=== PATIENT | female | born 1960 | race Caucasian/White ===

== ENCOUNTER 2016-07-26 13:47 | Emergency (ER) | payer OTHER ==
[2016-07-26 13:57] VITALS: TEMP 98.2
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
[2016-07-26 15:30] VITALS: RESP 15
[2016-07-26 15:35] LABS: Basophils % (A) 0 %; CH 33.5; CHCM 34.5; Eosinophils # (A) 0.1 k/uL (0-0.7); Eosinophils % (A) 1 %; HCT 44.3 % (34.0-46.0); HDW 2.08; HGB 14.7 gm/dL (11.4-16.0); Luc # (Auto) 0.16; Luc % (Auto) 1; Lymphocytes % (A) 7 %; MCH 32.4 pg (25.0-35.0); MCHC 33.2 g/dL (31.0-37.0); MCV 97.6 fL (80.0-100.0); Monocytes # (A) 0.9 k/uL (0-1.0); Monocytes % (A) 6 %; Neutrophils # (A) 13.3 k/uL (1.3-7.7); Neutrophils % (A) 86 %; RBC 4.54 m/uL (3.80-5.40); RDW 12.2 % (11.5-15.5); WBC 15.5 k/uL (3.8-10.6); WBC (Perox) 15.23
[2016-07-26 15:42] LABS: ALT 34 U/L (9-52); AST 22 U/L (14-36); Alkaline Phosphatase 82 U/L (38-126); Anion Gap 10 mmol/L; Blood Urea Nitrogen 7 mg/dL (7-17); Calcium 9.7 mg/dL (8.4-10.2); Carbon Dioxide 23 mmol/L (22-30); Chloride 103 mmol/L (98-107); Glucose 85 mg/dL (74-99); Magnesium 1.6 mg/dL (1.6-2.3); Non-African American GFR(MDRD) >60 (>60 ml/min/1.73 sqM); Potassium 4.2 mmol/L (3.5-5.1); Sodium 136 mmol/L (137-145); Total Bilirubin 0.7 mg/dL (0.2-1.3)
--- NOTE | 2016-07-26 15:46 | XR ---
EXAMINATION TYPE: XR chest 2V DATE OF EXAM: 07/26/2016 3:39 PM COMPARISON: Chest x-ray November 30, 2013. CT thoracic spine July 21, 2013 HISTORY: History of COPD, asthma, and tobacco use presents with left lateral chest pain. TECHNIQUE: Frontal and lateral views of the chest are obtained. FINDINGS: Underlying emphysematous change is redemonstrated. There is no focal air space opacity, pleural effus ion, or pneumothorax seen. The cardiac silhouette size is within normal limits. The osseous struct ures are demineralized. Chronic sclerotic moderate compression fracture T9 level is redemonstrated. N o significant change from prior CT noted. IMPRESSION: Chronic emphysematous change without acute pulmonary process.
[2016-07-26 15:53] LABS: Creatine Kinase 90 U/L (30-135)
[2016-07-26 15:56] LABS: Prothrombin Time 10.5 sec (9.0-12.0)
[2016-07-26 16:07] LABS: Troponin I <0.012 ng/mL (0.000-0.034)
[2016-07-26 17:25] VITALS: BP 168/96; PULSE 80
== END 2016-07-26 17:26 | disposition home or self-care (01) ==
LOC: EC 13:47
DX: F41.9 Anxiety disorder, unspecified (principal); J44.9 Chronic obstructive pulmonary disease, unspecified; I10 Essential (primary) hypertension; Z95.5 Presence of coronary angioplasty implant and graft; Z79.899 Other long term (current) drug therapy; Z79.51 Long term (current) use of inhaled steroids
CPT/HCPCS: 36415; 71020; 80053; 82550; 82553; 83690; 83735; 84484; 85025; 85610; 85730; 93005; 99285

== ENCOUNTER 2016-07-28 14:45 | Observation (INO) | payer OTHER ==
[2016-07-28] MEDS ORDERED: SODIUM CHLORIDE 0.9% 1,000 ML IV STA (15:45)
[2016-07-28] MEDS ORDERED: LORazepam 2 MG/ML SYRINGE IV STA (15:45)
[2016-07-28 16:24] LABS: Basophils % (A) 1 %; CH 33.9; CHCM 34.4; Eosinophils # (A) 0.1 k/uL (0-0.7); Eosinophils % (A) 1 %; HDW 2.04; HGB 15.6 gm/dL (11.4-16.0); Luc # (Auto) 0.13; Luc % (Auto) 2; Lymphocytes # (A) 1.1 k/uL (1.0-4.8); Lymphocytes % (A) 16 %; MCH 32.8 pg (25.0-35.0); MCHC 33.1 g/dL (31.0-37.0); Mean Platelet Volume 8.1; Monocytes # (A) 0.4 k/uL (0-1.0); Monocytes % (A) 6 %; Neutrophils # (A) 5.3 k/uL (1.3-7.7); Neutrophils % (A) 75 %; RBC 4.75 m/uL (3.80-5.40); RDW 12.1 % (11.5-15.5)
[2016-07-28 16:32] LABS: Partial Thromboplastin Time 24.3 sec (22.0-30.0); Prothrombin Time 10.3 sec (9.0-12.0)
[2016-07-28 16:38] LABS: ALT 30 U/L (9-52); AST 20 U/L (14-36); Alkaline Phosphatase 86 U/L (38-126); Anion Gap 11 mmol/L; Blood Urea Nitrogen 8 mg/dL (7-17); Calcium 10.1 mg/dL (8.4-10.2); Carbon Dioxide 25 mmol/L (22-30); Chloride 99 mmol/L (98-107); Glucose 100 mg/dL (74-99); Magnesium 1.7 mg/dL (1.6-2.3); Non-African American GFR(MDRD) >60 (>60 ml/min/1.73 sqM); Sodium 135 mmol/L (137-145); Total Bilirubin 0.7 mg/dL (0.2-1.3); Total Protein 7.9 g/dL (6.3-8.2)
[2016-07-28] MEDS ORDERED: ENALAPRILAT 1.25 MG/ML 1 ML VIAL IVP STA (16:46)
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
[2016-07-28 16:54] LABS: Creatine Kinase 107 U/L (30-135)
[2016-07-28 17:07] LABS: Troponin I <0.012 ng/mL (0.000-0.034)
[2016-07-28] MEDS ORDERED: ASPIRIN 81 MG CHEW PO STA (17:27)
[2016-07-28] MEDS ORDERED: SODIUM CHLORIDE 0.9% 1,000 ML IV ONE (17:27)
[2016-07-28] MEDS ORDERED: NITROGLYCERIN SL TABS 0.4 MG TAB SUBLINGUAL PRN (17:27)
--- NOTE | 2016-07-28 18:24 | XR ---
EXAMINATION TYPE: XR chest 2V DATE OF EXAM: 07/28/2016 6:06 PM COMPARISON: 07/26/2016 HISTORY: Chest pain TECHNIQUE: Frontal and lateral views of the chest are obtained. FINDINGS: There is no heart failure nor confluent pneumonic infiltrate. There is mild flattening of the diaphragm. There are no hilar masses. Heart size is normal. There are chest leads. There is 50% a nterior wedging of T9 vertebra. IMPRESSION: COPD. No active cardiopulmonary disease. No change.
[2016-07-28] MEDS ORDERED: ALBUTEROL NEBULIZED 2.5 MG/3 ML INHALATION PRN (20:01)
[2016-07-28] MEDS ORDERED: LORATADINE 10 MG TAB PO PRN (20:01)
[2016-07-28] MEDS ORDERED: METOPROLOL SUCCINATE (ER) 50 MG TAB.ER.24H PO SCH (21:00)
[2016-07-28] MEDS ORDERED: LOSARTAN 50 MG TAB PO SCH (21:00)
[2016-07-28 21:16] VITALS: BMI 19.5
[2016-07-28 23:20] LABS: Creatine Kinase 84 U/L (30-135)
[2016-07-28 23:32] LABS: Creatine Kinase MB 0.9 ng/mL (0.0-2.4); Troponin I <0.012 ng/mL (0.000-0.034)
[2016-07-29 04:39] LABS: Cholesterol 171 mg/dL (<200); HDL Cholesterol 69 mg/dL (40-60); Triglycerides 63 mg/dL (<150)
[2016-07-29 04:53] LABS: Creatine Kinase 80 U/L (30-135)
[2016-07-29 05:06] LABS: Troponin I <0.012 ng/mL (0.000-0.034)
[2016-07-29] MEDS ORDERED: ASPIRIN 325 MG TAB PO SCH (09:00)
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
[2016-07-29] MEDS: LOSARTAN 50 MG TAB PO SCH (09:39)
[2016-07-29] MEDS: METOPROLOL SUCCINATE (ER) 50 MG TAB.ER.24H PO SCH (09:40)
[2016-07-29] MEDS: SYMBICORT 160-4.5 MCG INHALER INHALATION SCH ×3 (11:07→20:07)
[2016-07-29] MEDS: CHOLECALCIFEROL 1,000 UNIT TAB PO SCH (11:26)
--- NOTE | 2016-07-29 14:35 | ECHOF ---
Referral Reason: MEASUREMENTS -------- HEIGHT: 170.2 cm WEIGHT: 56.3 kg BP: RVIDd: 2.4 cm (< 3.3) IVSd: 0.9 cm (0.6 - 1.1) LVIDd: 3.4 cm (3.9 - 5.3) LVPWd: 0.9 cm (0.6 - 1.1) IVSs: 1.1 cm LVIDs: 2.8 cm LVPWs: 0.9 cm Ao Diam: 2.9 cm (2.0 - 3.7) AV Cusp: 1.8 cm (1.5 - 2.6) LA Diam: 1.7 cm (2.7 - 3.8) MV EXCURSION: 13.015 mm (> 18.000) MV EF SLOPE: 97 mm/s (70 - 150) EPSS: 0.4 cm MV E Benny: 0.75 m/s MV DecT: 165 ms MV A Benny: 0.50 m/s MV E/A Ratio: 1.51 RAP: 5.00 mmHg RVSP: 28.56 mmHg FINDINGS -------- Sinus rhythm. This was a technically adequate study. LV size, wall thickness and systolic function are normal, with an EF greater than 55%. The right ventricle is normal in size. The left atrial size is normal. The right atrial size is normal. There is mild aortic valve sclerosis. There is no evidence of aortic regurgitation. Mild mitral annular calcification present. Mild mitral regurgitation is present. Mild tricuspid regurgitation present. There is no evidence of pulmonary hypertension. There is no pulmonic regurgitation present. The aortic root size is normal. There is no pericardial effusion. CONCLUSIONS -------- 1. LV size, wall thickness and systolic function are normal, with an EF greater than 55%. 2. There is mild aortic valve sclerosis. 3. Mild mitral annular calcification present. 4. Mild mitral regurgitation is present. 5. Mild tricuspid regurgitation present. 6. There is no evidence of pulmonary hypertension. [employer]SEMBLER: Kim Moore RDCS
[2016-07-29] MEDS ORDERED: NICOTINE 14MG/24HR PATCH TRANSDERM SCH (14:45)
[2016-07-29] MEDS ORDERED: NICOTINE POLACRILEX 2 MG GUM BUCCAL PRN (15:04)
[2016-07-29] MEDS: IPRATROPIUM-ALBUTEROL 3 ML NEB INHALATION SCH ×2 (15:26→20:04)
[2016-07-29] MEDS: LORazepam 0.5 MG TAB PO SCH ×2 (15:27→22:30)
--- NOTE | 2016-07-29 16:18 | HP ---
DATE OF ADMISSION: 07/28/2016 PRESENTING COMPLAINT: Heart racing. HISTORY OF PRESENTING COMPLAINT: This is a 56-year-old patient of Dr. Dickerson who has a history of COPD, is a smoker, GERD, osteoarthritis, hypertension, takotsubo syndrome, presents with sweating, not feeling well, easily gets short of breath, chest tightness. Blood pressure has been running high. Patient's stepdaughter ( ) at home. Patient is concerned if she has been poisoned in a tea. The patient does smoke anywhere from a pack to 2 packs a day. Patient is here with a close friend of hers. Blood pressure has been running high. REVIEW OF SYSTEMS: CONSTITUTIONAL: Tired. HEENT: None. RESPIRATORY: Short of breath, wheezing. CARDIOVASCULAR: Some palpitations. GASTROINTESTINAL: Heartburn. GENITOURINARY: None. MUSCULOSKELETAL: Osteoarthritis in patient's joints. DERMATOLOGICAL: None. HEMATOLOGIC: None. LYMPHATICS: None. PSYCHIATRY: Very anxious. NEUROLOGICAL: None. Past medical history of COPD, GERD, osteoarthritis, ( ), asthma and hypertension, takotsubo syndrome, anxiety, depression. 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 SOCIAL HISTORY: Smokes about 2 packs a day. Lives with her . Denies alcohol. Does marijuana. FAMILY HISTORY: Reviewed and noncontributory to presentation. HOME MEDICATIONS: 1. Toprol-XL 50 mg q.h.s. 2. Cozaar 50 mg q.h.s. 3. Vitamin D3 6000 units p.o. daily. 4. Zyrtec 10 mg p.o. daily p.r.n. 5. Symbicort Once a day 4.5, 2 puffs b.i.d. 6. Ventolin HFA 1 to 2 puffs every 6 hours p.r.n. On examination, temperature 98.7, pulse 91, respirations 17, blood pressure 187/100, pulse ox 100% on room air. GENERAL APPEARANCE: Thin build, sitting up, rather anxious-appearing. EYES: Pupils equal. Conjunctivae normal. HEENT: Oral cavity normal. NECK: JVD not raised. Mass not palpable. RESPIRATORY: Effort increased. LUNGS: Diminished breath sounds. Prolonged expiration. CARDIOVASCULAR: First and second sounds normal. No edema. ABDOMEN: Soft, nontender. Liver and spleen not palpable. LYMPHATIC: No lymph node palpable in neck or axillae. PSYCHIATRY: Alert and oriented x3. Mood and affect very anxious-appearing. NEUROLOGICAL: Pupils equal. Cranial nerves grossly intact. Power and sensation grossly intact. INVESTIGATIONS: White count 7, hemoglobin was 15.6. Potassium 4.0. Chest x-ray shows hyperinflation. Two-D echocardiogram shows EF of 55%. ASSESSMENT: 1. Essential hypertension, uncontrolled, present on admission. 2. Acute chronic obstructive pulmonary disease exacerbation in a smoker. 3. Chronic nicotine dependence. 4. Anxiety disorder, not otherwise specified. 5. Social stressors. 6. Primary osteoarthritis of multiple joints. PLAN: Patient put on nebulized bronchodilators and a burst of steroids, will be given nicotine patch and nicotine lozenge. Will get some Ativan. Blood pressure medications are being adjusted. Care was discussed at the bedside. Bedside questions were answered. Patient will need at least 24 hours patient stay.
[2016-07-29] MEDS: methylPREDNISolone SOD SUCCI 40 MG/ML 1 ML VIAL IV SCH (19:50)
[2016-07-29] MEDS: NICOTINE 21MG/24HR PATCH TRANSDERM SCH (19:50)
[2016-07-29] MEDS ORDERED: METOPROLOL SUCCINATE (ER) 50 MG TAB.ER.24H PO SCH (21:00)
[2016-07-30] MEDS: methylPREDNISolone SOD SUCCI 40 MG/ML 1 ML VIAL IV SCH ×2 (01:29→08:17)
[2016-07-30] MEDS: IPRATROPIUM-ALBUTEROL 3 ML NEB INHALATION SCH ×2 (07:50→12:10)
[2016-07-30] MEDS: SYMBICORT 160-4.5 MCG INHALER INHALATION SCH (07:53)
[2016-07-30 08:02] VITALS: BP 142/91; RESP 16; TEMP 98.4
[2016-07-30] MEDS: LORazepam 0.5 MG TAB PO SCH (08:16)
[2016-07-30] MEDS: NICOTINE 21MG/24HR PATCH TRANSDERM SCH (08:16)
[2016-07-30] MEDS: METOPROLOL SUCCINATE (ER) 50 MG TAB.ER.24H PO SCH (08:17)
[2016-07-30] MEDS: LOSARTAN 50 MG TAB PO SCH (08:17)
[2016-07-30] MEDS: CHOLECALCIFEROL 1,000 UNIT TAB PO SCH (12:01)
[2016-07-30 12:22] VITALS: PULSE 82
--- NOTE | 2016-07-31 22:45 | DS ---
DATE OF ADMISSION: 07/29/2016 DATE OF DISCHARGE: 07/30/2016 FINAL DIAGNOSES: 1. Acute chronic obstructive pulmonary disease exacerbation in a smoker. 2. Chronic nicotine dependence. Patient is a cigarette smoker. 3. Essential hypertension, uncontrolled on presentation. 4. Anxiety disorder not otherwise specified. 5. Social stress. 6. Primary osteoarthritis in multiple joints. HOSPITAL COURSE: This patient presented with anxiety, somewhat uncontrolled, high blood pressure, COPD exacerbation. Two-D echocardiogram was unremarkable. Patient was given a burst of steroids, to which she responded. Patient's LDL is 89. Patient does take marijuana. Patient's was counseled extensively against ( ) smoking today. On examination, lungs have improved air entry. PSYCH: Patient's anxiety is actually improving. DISCHARGE MEDICATIONS: 1. Toprol XL 50 mg at bedtime. 2. Symbicort 160/4.5 two puffs b.i.d. 3. Vitamin D3 6000 units daily. 4. Cozaar 50 mg at bedtime. 5. Ventolin HFA 1 to 2 puffs q.6 p.r.n. 6. Atrovent HFA 2 puffs q.i.d. 7. Ativan 0.5 p.o. t.i.d. p.r.n. 8. Nicotine 20 mg patch. 9. Nicorette 2 mg chewing gum q.4 p.r.n. 10. Prednisone taper. Follow up with Dr. Artis Randle in 2 weeks. Follow up with Dr. Dickerson in 3 days. Discharge planning more than 35 minutes.
== END 2016-07-30 16:42 | disposition home or self-care (01) ==
LOC: EC 14:45 → 3OBS 17:27 → OBSVTOIN 07-29 14:34 → INTOOBSV 07-29 14:34 → 4MS4W 07-29 16:15
PROVIDERS: ADMIT Hospitalist; ATTEND Hospitalist
DX: J44.1 Chronic obstructive pulmonary disease with (acute) exacerbation (principal); I10 Essential (primary) hypertension; F17.210 Nicotine dependence, cigarettes, uncomplicated; G40.909 Epilepsy, unspecified, not intractable, without status epilepticus; G89.4 Chronic pain syndrome; I16.0 Hypertensive urgency; J45.909 Unspecified asthma, uncomplicated; K21.9 Gastro-esophageal reflux disease without esophagitis; M19.91 Primary osteoarthritis, unspecified site; Z79.899 Other long term (current) drug therapy; Z82.49 Family history of ischemic heart disease and other diseases of the circulatory system; Z79.51 Long term (current) use of inhaled steroids
CPT/HCPCS: 99285; 96374; 96361; 36415; 94640 ×4; 94760; 93005; 93306; 80061; 80053; 82550 ×2; 82553 ×2; 83735; 84484 ×2; 85025; 85610; 85730; 80306; 71020; G0378 ×4; S4990 ×2; J2060; J2920 ×2

== ENCOUNTER → 2017-01-22 | Outpatient (CLI) | payer OTHER | END | disposition home or self-care (01) | LOC: RADMAMWWP 07:39 | PROVIDERS: ATTEND Family Medicine | DX: Z53.9 Procedure and treatment not carried out, unspecified reason (principal) ==

== ENCOUNTER → 2017-08-23 | Outpatient (CLI) | payer OTHER ==
--- NOTE | 2017-08-27 11:13 | MM ---
Reason for exam: screening (asymptomatic). Last mammogram was performed 1 year and 10 months ago. History: Patient is postmenopausal. Benign excisional biopsy of the right breast, 2008. Physical Findings: A clinical breast exam by your physician is recommended on an annual basis and results should be correlated with mammographic findings. MG 3D Screening Mammo W/Cad Bilateral CC and MLO view(s) were taken. Prior study comparison: October 20, 2015, bilateral MG diagnostic mammo w CAD [facility]. January 29, 2015, bilateral MG screening mammo w CAD. The breast tissue is heterogeneously dense. This may lower the sensitivity of mammography. No suspicious abnormality. Right post excisional biopsy change. No significant changes when compared with prior studies. ASSESSMENT: Incomplete: need additional imaging evaluation, BI-RAD 0 RECOMMENDATION: Special view mammogram of the left breast. (breast skin dimpling per patient history) If lesion persists on supplemental views, image directed ultrasound is recommended. [facility] will attempt to contact patient to return for supplemental views and ultrasound if indicated.
== END | disposition home or self-care (01) ==
LOC: RADMAMWWP 11:00
PROVIDERS: ATTEND Family Medicine
DX: Z12.31 Encounter for screening mammogram for malignant neoplasm of breast (principal)
CPT/HCPCS: 77063; 77067

== ENCOUNTER → 2017-08-28 | Outpatient (CLI) | payer OTHER ==
--- NOTE | 2017-08-29 08:53 | USB ---
Reason for exam: additional evaluation requested from abnormal screening. History: Patient is postmenopausal. Benign excisional biopsy of the right breast, 2008. Physical Findings: Nurse Summary: 1cm nodule in the left breast at 3 o'clock (nurse mildred). US Breast Workup Limited LT Left breast ultrasound demonstrates duct ectasia at 3 o'clock, a duct at 3 o'clock BB and duct ectasia at the posterior nipple. These results were verbally communicated with the patient and result sheet given to the patient on 08/28/17. ASSESSMENT: Benign, BI-RAD 2 RECOMMENDATION: Return to routine screening mammogram schedule for both breasts.
== END | disposition home or self-care (01) ==
LOC: RADMAMWWP 13:29
PROVIDERS: ATTEND Family Medicine
DX: R92.8 Other abnormal and inconclusive findings on diagnostic imaging of breast (principal)

== ENCOUNTER → 2017-12-19 | Outpatient (CLI) | payer OTHER ==
--- NOTE | 2017-12-19 16:30 | BD ---
EXAMINATION TYPE: Axial Bone Density DATE OF EXAM: 12/19/2017 COMPARISON: NONE CLINICAL HISTORY: 57-year-old female osteoporosis, hypercalcemia Height: 65 Weight: 133.6 FRAX RISK QUESTIONS: Alcohol (3 or more units per day): no Family History (Parent hip fracture): yes/ mother Glucocorticoids (More than 3mos): (Ex: prednisone, prednisolone, methylprednisolone, dexamethasone, and hydrocortisone). History of Fracture in Adulthood: yes Secondary Osteoporosis: 1. Type 1 Diabetes: no 2. Hyperthyroidism: no 3. Menopause before 45: no 4. Malnutrition: no 5. Chronic liver disease: no Rheumatoid Arthritis: no Current Tobacco Use: yes RISK FACTORS HISTORY OF: History of Wrist Fracture: right When: as a child Family History of Osteoporosis: yes Active: sometimes Diet low in dairy products/other sources of calcium: yes Postmenopausal woman: august 2012 Lost more than 2 inches in height since high school: just two inches MEDICATIONS: Symbicort, albuterol inhaler, losartan, metoprolol, anti depressant Additional History: EXAM MEASUREMENTS: Bone mineral densitometry was performed using the [employer] System. Bone mineral density as measured about the Lumbar spine is: ----- L1-L4(G/cm2): 0.955 T Score Values are as follows: ----- L2: -2.6 ----- L3: -1.8 ----- L4: -1.3 ----- L1-L4: -1.9 Bone mineral density has: decreased -6.8 % since study of: 08.04.2013 Bone mineral density about the R hip (g/cm2): 0.678 Bone mineral density about the L hip (g/cm2): 0.696 T Score values are as follows: -----R Neck: -2.6 -----L Neck: -2.5 -----R Total: -3.2 -----L Total: -3.2 Bone mineral density has: decreased -15.5 % since study of: 08.04.2013 IMPRESSION: Osteoporosis (T Score less than -2.5). There is increased fracture risk and therapy is usually indicated based on age. Re-Screen 1-2 years. NOTE: T-SCORE=SD OF THE YOUNG ADULT MEAN.
== END | disposition home or self-care (01) ==
LOC: RADBDWWP 13:20
PROVIDERS: ATTEND Family Medicine
DX: M81.0 Age-related osteoporosis without current pathological fracture (principal); E83.52 Hypercalcemia
CPT/HCPCS: 77080

== ENCOUNTER → 2019-03-24 | Outpatient (CLI) | payer OTHER ==
--- NOTE | 2019-03-25 15:00 | MM ---
Reason for exam: screening (asymptomatic). Last mammogram was performed 1 year and 7 months ago. History: Patient is postmenopausal. Benign excisional biopsy of the right breast, 2008. Physical Findings: A clinical breast exam by your physician is recommended on an annual basis and results should be correlated with mammographic findings. MG Screening Mammo w CAD Bilateral CC and MLO view(s) were taken. Prior study comparison: August 23, 2017, bilateral MG 3d screening mammo w/cad. October 20, 2015, bilateral MG diagnostic mammo w CAD [facility]. There are scattered fibroglandular densities. No significant changes when compared with prior studies. ASSESSMENT: Benign, BI-RAD 2 RECOMMENDATION: Routine screening mammogram of both breasts in 1 year.
== END ==
LOC: RADMAMWWP 14:53
PROVIDERS: ATTEND Physician Assistant
DX: Z12.31 Encounter for screening mammogram for malignant neoplasm of breast (principal)
CPT/HCPCS: 77067

== ENCOUNTER → 2019-05-26 | Outpatient (CLI) | payer OTHER ==
--- NOTE | 2019-05-26 15:50 | XR ---
Bilateral hips HISTORY: Bilateral hip pain 2 views of each hip are submitted. No comparisons Bone mineralization is mildly reduced. Joint spaces and alignment are maintained. No fracture or disl ocation. IMPRESSION: Unremarkable appearance. MRI may be of benefit.
== END | disposition home or self-care (01) ==
LOC: RADXRMAIN 15:27
PROVIDERS: ATTEND Family Medicine
DX: M25.551 Pain in right hip (principal); M25.552 Pain in left hip
CPT/HCPCS: 73521

== ENCOUNTER 2019-08-19 02:30 | Emergency (ER) | payer OTHER ==
[2019-08-19 02:36] VITALS: BP 123/85; PULSE 69; RESP 20; TEMP 98
[2019-08-19] MEDS ORDERED: HYDROcodone/APAP 5-325MG 1 EACH TAB PO STA (02:53)
--- NOTE | 2019-08-19 03:11 | XR ---
EXAMINATION TYPE: XR foot complete RT DATE OF EXAM: 08/19/2019 COMPARISON: NONE HISTORY: Foot pain TECHNIQUE: 3 views FINDINGS: Metatarsals appear intact. I see no fracture nor dislocation. Joint spaces are fairly ross l. IMPRESSION: Negative right foot exam.
--- NOTE | 2019-08-19 03:12 | XR ---
EXAMINATION TYPE: XR ankle complete RT DATE OF EXAM: 08/19/2019 COMPARISON: NONE HISTORY: Foot pain TECHNIQUE: 3 views FINDINGS: Ankle mortise is anatomic. I see no fracture nor dislocation. Joint spaces are normal. IMPRESSION: Negative right ankle exam.
[2019-08-19] MEDS ORDERED: ACET/COD 300 MG/30 MG STARTER PACK 6 TAB BTL PO STA (03:25)
--- NOTE | 2019-08-19 03:25 | ED ---
Lower Extremity Injury HPI - General Chief Complaint: Extremity Injury, Lower Stated Complaint: R Ankle Injury Time Seen by Provider: 08/19/19 02:44 Source: patient, family Mode of arrival: ambulatory Limitations: no limitations - History of Present Illness Initial Comments: 59-year-old female patient presents to the emergency department today for evalua tion of right foot and ankle pain. Patient states earlier this afternoon she was walking around the yard when she stepped into a hole and twisted her foot. Patient states she's been having significant pain to the area since. States that the area is swollen and bruised. States that she did take meloxicam and Tylenol with minimal relief of her pain. States that she did fall during the incident. Denies hitting her head or losing consciousness. Denies any other injuries. Patient denies any headache, neck pain, back pain, chest pain, shortness of breath, dizziness, weakness, abdominal pain, nausea, vomiting, or difficulties with bowel movements or urination. She denies use of anticoagulant or antiplatelet medications. - Related Data Home Medications Medication Instructions Recorded Confirmed Metoprolol Succinate (ER) [Toprol 50 tab PO HS 11/30/13 07/28/16 XL] Budesonide-Formot 160-4.5 Mcg 2 puff INHALATION RT-BID 07/26/16 07/28/16 [Symbicort 160-4.5 Mcg Inhaler] Cholecalciferol [Vitamin D3 (25 6,000 unit PO DAILY 07/26/16 07/28/16 Mcg = 1000 Iu)] Losartan Potassium [Cozaar] 50 mg PO HS 07/26/16 07/28/16 Albuterol Inhaler [Ventolin Hfa 1 - 2 puff INHALATION Q6HR PRN 07/28/16 07/28/16 Inhaler] Previous Rx's Medication Instructions Recorded Ipratropium [place] [Atrovent Hfa] 2 puff INHALATION QID #1 inhaler 07/30/16 LORazepam [Ativan] 0.5 mg PO TID PRN #30 tab 07/30/16 Nicotine 21Mg/24Hr Patch [Habitrol] 1 patch TRANSDERM DAILY #14 patch 07/30/16 Nicotine Polacrilex [Nicorette] 2 mg BUCCAL Q4HR PRN #30 gum 07/30/16 predniSONE 10 mg PO DAILY #30 tab 07/30/16 Allergies Allergy/AdvReac Type Severity Reaction Status Date / Time steroids AdvReac Unknown Uncoded 08/19/19 02:36 Review of Systems ROS Statement: Those systems with pertinent positive or pertinent negative responses have been documented in the HPI. ROS Other: All systems not noted in ROS Statement are negative. 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 when an infant Past Anesthesia/Blood Transfusion Reactions: Motion Sickness Additional Past Anesthesia/Blood Transfusion Reaction / Comment(s): Trouble waking up from anesthesia pt thinks it was caused by propofol Past Psychological History: Anxiety, Depression Smoking Status: Current every day smoker Past Alcohol Use History: Rare Past Drug Use History: Marijuana - Past Family History Mother Family Medical History: Hypertension General Exam Limitations: no limitations General appearance: alert, in no apparent distress, other (This is a well- developed, well-nourished adult female patient in no acute distress. Vital signs upon presentation are temperature 98.0F, pulse 69, respirations 20, blood pressure 123/85, pulse ox 97% on room air.) Eye exam: Present: normal appearance, PERRL, EOMI. Absent: scleral icterus, conjunctival injection, periorbital swelling ENT exam: Present: normal exam, normal oropharynx, mucous membranes moist Neck exam: Present: normal inspection, full ROM, other (Nontender, no step-off, no deformity to firm midline palpation of the posterior cervical spine. Full range of motion without pain or limitation.). Absent: tenderness, meningismus, lymphadenopathy Respiratory exam: Present: normal lung sounds bilaterally. Absent: respiratory distress, wheezes, rales, rhonchi, stridor Cardiovascular Exam: Present: regular rate, normal rhythm, normal heart sounds. Absent: systolic murmur, diastolic murmur, rubs, gallop, clicks GI/Abdominal exam: Present: soft, normal bowel sounds. Absent: distended, tenderness, guarding, rebound, rigid Extremities exam: Present: full ROM, tenderness (Tenderness over the dorsal aspect of the right foot, right lateral ankle.), normal capillary refill, other (There is ecchymosis and soft tissue swelling noted over the dorsal aspect of the right foot mainly over the third, fourth, fifth metatarsals proximally. Skin is otherwise pink, warm, dry. Cap refills less than 3 seconds. Pedal and posttibial pulses are 2+ and equal bilaterally.). Absent: normal inspection, pedal edema, joint swelling, calf tenderness Back exam: Present: normal inspection, other (Nontender, no step-off, no deform ity to firm midline palpation of the thoracic and lumbar vertebrae. Full range of motion without pain or limitation.). Absent: vertebral tenderness Neurological exam: Present: alert, oriented X3, CN II-XII intact Psychiatric exam: Present: normal affect, normal mood Skin exam: Present: warm, dry, intact, normal color. Absent: rash Course Vital Signs 08/19/19 02:33 Temperature 98 F Pulse Rate 69 Respiratory 20 Rate Blood Pressure 123/85 O2 Sat by Pulse 97 Oximetry Medical Decision Making - Medical Decision Making 59-year-old female patient presents to the emergency department today for evaluation of right foot and ankle pain after stepping in a hole twisting her foot. Physical examination did reveal soft tissue swelling and ecchymosis over the dorsal aspect of the right foot. Neurovascular status is intact. X-rays of the right ankle and foot were obtained and showed no acute fractures or dislocations. Patient symptoms are consistent with right foot sprain. She did have Ryan wrap which we reapplied. We also gave in ankle stirrup splint. She is instructed to continue Tylenol Motrin for pain control. She is educated regarding rest, ice, elevation. She is instructed to follow-up with her primary care physician for recheck in 1-2 days. She is instructed to have repeat x-rays performed in 7-10 days if pain symptoms persist. Return parameters were discussed in detail. She verbalizes understanding and agrees with this plan. - Radiology Data Radiology results: report reviewed, image reviewed 3 views of the right ankle are obtained. Report was reviewed in its entirety. Impression by Dr. Kemp shows negative right ankle exam. 3 views of the right foot obtained. Report was reviewed in its entirety. Impression by Dr. Kemp shows negative right foot examined Disposition Clinical Impression: Right foot sprain Disposition: HOME SELF-CARE Condition: Good Instructions (If sedation given, give patient instructions): Foot Sprain (ED) Additional Instructions: Rest, ice, elevate the foot. Apply ice 20 minutes at a time 4-5 times daily. Continue tylenol and motrin for pain. Use tylenol with codeine sparingly for severe pain. Follow-up through primary care physician for recheck in 1-2 days. Have repeat x-rays performed in 7-10 days if pain symptoms persist. Return to the emergency department immediately for any new, worsening, or concerning symptoms. Is patient prescribed a controlled substance at d/c from ED?: No Referrals: Michoacano Alcantar DO [Primary Care Provider] - 1-2 days Time of Disposition: 03:24
== END 2019-08-19 03:28 | disposition home or self-care (01) ==
LOC: EC 02:30
DX: S93.601A Unspecified sprain of right foot, initial encounter (principal); J44.9 Chronic obstructive pulmonary disease, unspecified; I10 Essential (primary) hypertension; F17.200 Nicotine dependence, unspecified, uncomplicated; Z88.8 Allergy status to other drugs, medicaments and biological substances; Z79.51 Long term (current) use of inhaled steroids; Z79.899 Other long term (current) drug therapy; Z95.5 Presence of coronary angioplasty implant and graft; X50.1XXA Overexertion from prolonged static or awkward postures, initial encounter; Y93.01 Activity, walking, marching and hiking; Y92.009 Unspecified place in unspecified non-institutional (private) residence as the place of occurrence of the external cause
CPT/HCPCS: 29515; 99283

== ENCOUNTER 2019-09-21 21:37 | Inpatient (IN) | payer OTHER ==
[2019-09-21] MEDS ORDERED: SODIUM CHLORIDE 0.9% 1,000 ML IV STA (22:12)
[2019-09-21] MEDS ORDERED: PANTOPRAZOLE 40 MG/10 ML VIAL IVP STA (22:12)
--- NOTE | 2019-09-21 22:18 | ED ---
General Adult HPI - General Source: patient, RN notes reviewed Mode of arrival: ambulatory Limitations: no limitations <Gatito Baumann - Last Filed: 09/21/19 22:14> <Ronny Sierra - Last Filed: 09/22/19 00:33> - General Chief complaint: GI Bleed Stated complaint: Vomiting Time Seen by Provider: 09/21/19 21:46 - History of Present Illness Initial comments: Patient is a pleasant 59-year-old female presenting to the emergency department with complaints of nausea vomiting. Patient did have some mid to lower back discomfort starting around 5 days ago. Since that time that has moved more to the abdomen. Discomfort is mild to moderate of the abdomen. Patient is vomited multiple times. Patient has had some dark coffee-ground emesis however did vomit bright red blood couple of times. Patient has also had several episodes of black tarry stool. No history of similar symptoms previously. No significant alcohol use. No history of liver disease or previous stomach problems. (Gatito Baumann) - Related Data Home Medications Medication Instructions Recorded Confirmed Albuterol Inhaler (Bulk) [Ventolin 2 puff INHALATION RT-Q4H PRN 07/28/16 Hfa Inhaler (Bulk)] Alendronate Sodium [Fosamax] 70 mg PO LAM 09/21/19 09/21/19 Ergocalciferol (Vitamin D2) 50,000 unit PO TH 09/21/19 09/21/19 [Drisdol] Fish Oil/Dha/Epa [Fish Oil 1,200 1 cap PO DAILY 09/21/19 09/21/19 mg Fish Oil] Fluticasone/Salmeterol 1 puff INHALATION RT-BID 09/21/19 09/21/19 [Fluticasone-Salmeterol 232-14] LORazepam [Ativan] 0.5 mg PO DAILY 09/21/19 09/21/19 Magnesium Oxide [Mag-Ox] 400 mg PO DAILY 09/21/19 09/21/19 Meloxicam 15 mg PO HS 09/21/19 09/21/19 Metoprolol Succinate [Toprol XL] 100 mg PO DAILY@2200 09/21/19 09/21/19 Nitrofurantoin Monohyd/M-Cryst 100 mg PO Q12HR 09/21/19 09/21/19 [Macrobid] Sertraline [Zoloft] 50 mg PO DAILY@2200 09/21/19 09/21/19 Allergies Allergy/AdvReac Type Severity Reaction Status Date / Time steroids AdvReac Unknown Uncoded 09/21/19 22:52 Review of Systems ROS Other: All systems not noted in ROS Statement are negative. Constitutional: Denies: fever Eyes: Denies: eye pain ENT: Denies: ear pain Respiratory: Denies: cough Cardiovascular: Denies: chest pain Endocrine: Denies: fatigue Gastrointestinal: Reports: as per HPI, abdominal pain, nausea, vomiting, hematemesis, melena Genitourinary: Denies: dysuria Musculoskeletal: Reports: as per HPI Skin: Denies: rash Neurological: Denies: weakness <Gatito Baumann - Last Filed: 09/21/19 22:14> ROS Other: All systems not noted in ROS Statement are negative. <Ronny Sierra - Last Filed: 09/22/19 00:33> ROS Statement: Those systems with pertinent positive or pertinent negative responses have been documented in the HPI. 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 Past Anesthesia/Blood Transfusion Reactions: Motion Sickness Additional Past Anesthesia/Blood Transfusion Reaction / Comment(s): Trouble waking up from anesthesia pt thinks it was caused by propofol Past Psychological History: Anxiety, Depression Smoking Status: Current every day smoker Past Alcohol Use History: Rare Past Drug Use History: Marijuana - Past Family History Mother Family Medical History: Hypertension <Gatito Baumann - Last Filed: 09/21/19 22:14> General Exam Limitations: no limitations General appearance: alert, in no apparent distress Head exam: Present: normocephalic Eye exam: Present: normal appearance, PERRL ENT exam: Present: normal oropharynx Neck exam: Present: normal inspection Respiratory exam: Present: normal lung sounds bilaterally Cardiovascular Exam: Present: tachycardia Expanded Peripheral pulses: 2+: Dorsalis Pedis (R), Dorsalis Pedis (L) GI/Abdominal exam: Present: soft, tenderness (Mild diffuse tenderness). Absent: distended Extremities exam: Present: normal inspection Back exam: Present: normal inspection. Absent: tenderness Neurological exam: Present: alert Psychiatric exam: Present: normal affect, normal mood Skin exam: Present: normal color <Gatito Baumann - Last Filed: 09/21/19 22:14> Course Vital Signs 09/21/19 09/21/19 09/22/19 21:41 23:13 00:12 Temperature 98.5 F Pulse Rate 125 H 95 80 Respiratory 22 18 17 Rate Blood Pressure 155/94 143/109 176/100 O2 Sat by Pulse 100 98 99 Oximetry Medical Decision Making - Lab Data Result diagrams: 09/21/19 22:29 09/21/19 22:29 <Ronny Sierra - Last Filed: 09/22/19 00:33> - Lab Data Lab Results 09/21/19 09/21/19 09/21/19 Range/Units 22:29 22:29 22:29 WBC 14.3 H (3.8-10.6) k/uL RBC 3.70 L (3.80-5.40) m/uL Hgb 12.2 (11.4-16.0) gm/dL Hct 34.9 (34.0-46.0) % MCV 94.4 (80.0-100.0) fL MCH 32.9 (25.0-35.0) pg MCHC 34.9 (31.0-37.0) g/dL RDW 11.7 (11.5-15.5) % Plt Count 347 (150-450) k/uL Neutrophils % 84 % Lymphocytes % 9 % Monocytes % 5 % Eosinophils % 1 % Basophils % 0 % Neutrophils # 12.0 H (1.3-7.7) k/uL Lymphocytes # 1.3 (1.0-4.8) k/uL Monocytes # 0.7 (0-1.0) k/uL Eosinophils # 0.1 (0-0.7) k/uL Basophils # 0.0 (0-0.2) k/uL PT 10.0 (9.0-12.0) sec INR 1.0 (<1.2) APTT 23.2 (22.0-30.0) sec Sodium 126 L (137-145) mmol/L Potassium 3.2 L (3.5-5.1) mmol/L Chloride 95 L (98-107) mmol/L Carbon Dioxide 21 L (22-30) mmol/L Anion Gap 10 mmol/L BUN 19 H (7-17) mg/dL Creatinine 0.54 (0.52-1.04) mg/dL Est GFR (CKD-EPI)AfAm >90 (>60 ml/min/1.73 sqM) Est GFR (CKD-EPI)NonAf >90 (>60 ml/min/1.73 sqM) Glucose 116 H (74-99) mg/dL Calcium 9.4 (8.4-10.2) mg/dL Total Bilirubin 0.5 (0.2-1.3) mg/dL AST 16 (14-36) U/L ALT 10 (4-34) U/L Alkaline Phosphatase 78 (38-126) U/L Total Protein 6.8 (6.3-8.2) g/dL Albumin 4.1 (3.5-5.0) g/dL Lipase (23-300) U/L Blood Type Blood Type Confirm Blood Type Recheck Bld Type Recheck Status Antibody Screen Spec Expiration Date 09/21/19 09/21/19 09/21/19 Range/Units 22:29 22:30 22:32 WBC (3.8-10.6) k/uL RBC (3.80-5.40) m/uL Hgb (11.4-16.0) gm/dL Hct (34.0-46.0) % MCV (80.0-100.0) fL MCH (25.0-35.0) pg MCHC (31.0-37.0) g/dL RDW (11.5-15.5) % Plt Count (150-450) k/uL Neutrophils % % Lymphocytes % % Monocytes % % Eosinophils % % Basophils % % Neutrophils # (1.3-7.7) k/uL Lymphocytes # (1.0-4.8) k/uL Monocytes # (0-1.0) k/uL Eosinophils # (0-0.7) k/uL Basophils # (0-0.2) k/uL PT (9.0-12.0) sec INR (<1.2) APTT (22.0-30.0) sec Sodium (137-145) mmol/L Potassium (3.5-5.1) mmol/L Chloride (98-107) mmol/L Carbon Dioxide (22-30) mmol/L Anion Gap mmol/L BUN (7-17) mg/dL Creatinine (0.52-1.04) mg/dL Est GFR (CKD-EPI)AfAm (>60 ml/min/1.73 sqM) Est GFR (CKD-EPI)NonAf (>60 ml/min/1.73 sqM) Glucose (74-99) mg/dL Calcium (8.4-10.2) mg/dL Total Bilirubin (0.2-1.3) mg/dL AST (14-36) U/L ALT (4-34) U/L Alkaline Phosphatase (38-126) U/L Total Protein (6.3-8.2) g/dL Albumin (3.5-5.0) g/dL Lipase 52 (23-300) U/L Blood Type O Positive Blood Type Confirm O Positive Blood Type Recheck No Previous Record Bld Type Recheck Status CABO Indicated Antibody Screen NEGATIVE Spec Expiration Date 09/24/2019 - 2329 Disposition <Gatito Baumann - Last Filed: 09/21/19 22:14> Is patient prescribed a controlled substance at d/c from ED?: No <Ronny Sierra - Last Filed: 09/22/19 00:33> Clinical Impression: Gastritis, Upper gastrointestinal hemorrhage Disposition: ADMITTED IP TO THIS HOSP Condition: Good Referrals: Michoacano Alcantar DO [Primary Care Provider] - 1-2 days
[2019-09-21 22:43] LABS: Basophils % (A) 0 %; Eosinophils # (A) 0.1 k/uL (0-0.7); Eosinophils % (A) 1 %; HCT 34.9 % (34.0-46.0); HGB 12.2 gm/dL (11.4-16.0); Lymphocytes # (A) 1.3 k/uL (1.0-4.8); Lymphocytes % (A) 9 %; MCH 32.9 pg (25.0-35.0); MCHC 34.9 g/dL (31.0-37.0); MCV 94.4 fL (80.0-100.0); Monocytes # (A) 0.7 k/uL (0-1.0); Monocytes % (A) 5 %; Neutrophils % (A) 84 %; Platelet Count 347 k/uL (150-450); RDW 11.7 % (11.5-15.5); WBC 14.3 k/uL (3.8-10.6)
[2019-09-21 22:49] LABS: ALT 10 U/L (4-34); AST 16 U/L (14-36); African American GFR (CKD) >90 (>60 ml/min/1.73 sqM); Albumin 4.1 g/dL (3.5-5.0); Alkaline Phosphatase 78 U/L (38-126); Anion Gap 10 mmol/L; Blood Urea Nitrogen 19 mg/dL (7-17); Calcium 9.4 mg/dL (8.4-10.2); Carbon Dioxide 21 mmol/L (22-30); Chloride 95 mmol/L (98-107); Glucose 116 mg/dL (74-99); Non-African American GFR(CKD) >90 (>60 ml/min/1.73 sqM); Partial Thromboplastin Time 23.2 sec (22.0-30.0); Potassium 3.2 mmol/L (3.5-5.1); Sodium 126 mmol/L (137-145); Total Bilirubin 0.5 mg/dL (0.2-1.3); Total Protein 6.8 g/dL (6.3-8.2)
--- NOTE | 2019-09-21 23:47 | CT ---
EXAMINATION TYPE: CT abdomen pelvis w con DATE OF EXAM: 09/21/2019 COMPARISON: None HISTORY: GI bleed CT DLP: 496.7 mGycm Automated exposure control for dose reduction was used. CONTRAST: Performed with IV Contrast, patient injected with 100 mL of Isovue 300. Lung bases are clear. There is no pleural effusion. There is small hiatal hernia. Heart size is ross l. There is no pericardial effusion. There is some pulmonary hyperinflation. Liver spleen pancreas gallbladder appear normal. Bile ducts are not dilated. There is some wall thic kening of the distal body of the stomach. There is hypodensity in the wall. There is no adrenal mass. Kidneys show satisfactory contrast opacification. There is no hydronephrosi s. There is no retroperitoneal adenopathy. Abdominal aorta is atheromatous. There is no evidence of r enal obstruction. Ureters are not dilated. Delayed images show normal renal excretion. Bladder disten ds smoothly. Uterus is anteverted. There is small amount of free fluid in the pelvis on the left side . There is no evidence of a pelvic mass. There is no inguinal hernia. There is no mesenteric edema. There is no ascites or free air. There is no sign of a bowel obstructio n. Appendix is posterior and medial and appears normal. Lumbar spine is intact. There is no compressi on fracture. The bony pelvis is intact. IMPRESSION: Edema and wall thickening of the distal body of the stomach could relate to some nonspecific gastriti s. No dilated ducts. Atherosclerotic vascular disease. COPD. Minimal free fluid in the pelvis of unce rtain significance.
[2019-09-22] MEDS ORDERED: SODIUM CHLORIDE 0.9% 500 ML 500 ML IV STA (00:03)
[2019-09-22] MEDS ORDERED: SODIUM CHLORIDE 0.9% 1,000 ML IV STA (00:03)
[2019-09-22] MEDS ORDERED: ONDANSETRON 4 MG/2 ML VIAL IVP STA ×2 (00:03→00:29)
[2019-09-22] MEDS ORDERED: POTASSIUM BICARBONATE/CIT AC 20 MEQ TABLET.EFF PO ONE (00:03)
[2019-09-22] MEDS ORDERED: MORPHINE SULFATE 4 MG/ML SYRINGE IVP STA (00:24)
[2019-09-22] MEDS ORDERED: LORazepam 2 MG/ML INJ IV PRN (00:32)
[2019-09-22] MEDS: SODIUM CHLORIDE 0.9% 1,000 ML IV SCH ×3 (01:00→21:19)
[2019-09-22] MEDS: MORPHINE SULFATE 4 MG/ML SYRINGE IVP PRN ×3 (05:41→19:25)
[2019-09-22] MEDS: PANTOPRAZOLE 40 MG/10 ML VIAL IVP SCH ×2 (09:46→21:19)
--- NOTE | 2019-09-22 10:27 | P.CONS ---
History of Present Illness - Reason for Consult Consult date: 09/22/19 Hx Von Wb Disease Requesting physician: Sharon Engle - Chief Complaint Hematemesis - History of Present Illness Mrs. Persaud is a very pleasant 59-year-old female patient who states a history of von Willebrand's disease. She remembers at a very young age having easy bruising and being taken to the doctor, unsure of a formal diagnosis, she was just told that she had to report problems with clotting to her doctors prior to any surgical procedures. She has had multiple surgical procedures including impacted wisdom tooth removal, left neck teratoma removal, right breast lumpectomy (nonmalignant), tonsillectomy when she was very young, bilateral lens replacement, denies any postoperative complications, she does report to her physicians needing precaution with surgical procedures. She thinks that she may have seen Dr. Mcclure many years ago (approximately 2008?). Patient is currently admitted with vomiting and subsequent hematemesis. She has epigastric discomfort, pain straight through to her back on the right side. She denies any other bleeding, fever, chills, acute changes in breathing, chest pain, dysuria, hematuria, hematochezia, melena, acute changes in bowel habits, lower extremity swelling. As of note patient states febrile illness in June, associated with severe fatigue for at least 3 days, shortness of breath with chest discomfort that use of her inhalers did not improve 1 day, she developed 3 lesions on her right upper extremity and one on the bridge of her nose after that illness episode and have not resolved. She still feels somewhat fatigued but, better than she was back then. Review of Systems 14 point review of systems is negative except as stated in HPI Past Medical History Past Medical History: Asthma, Blood Disorder, Chest Pain / Angina, COPD, G ERD/Reflux, Hypertension, Osteoarthritis (OA), Seizure Disorder, Skin Disorder Additional Past Medical History / Comment(s): TAKATSUBO SYNDROME Has had only one seizure in 2012 and takes no medications for seizures, von willebrand syndrome History of Any Multi-Drug Resistant Organisms: None Reported Past Surgical History: Heart Catheterization, Tonsillectomy Additional Past Surgical History / Comment(s): RIGHT LUMPECTOMY, Teratoma removal from neck when an Past Anesthesia/Blood Transfusion Reactions: Motion Sickness Additional Past Anesthesia/Blood Transfusion Reaction / Comm: Trouble waking up from anesthesia pt thinks it was caused by propofol Past Psychological History: Anxiety, Depression Smoking Status: Current every day smoker Past Alcohol Use History: Rare Past Drug Use History: Marijuana Additional Drug Use History / Comment(s): pt states medical marijuana - Past Family History Mother Family Medical History: Hypertension Medications and Allergies Home Medications Medication Instructions Recorded Confirmed Type Albuterol Inhaler (Bulk) [Ventolin 2 puff INHALATION RT-Q4H PRN 07/28/1609/09 History Hfa Inhaler (Bulk)] Alendronate Sodium [Fosamax] 70 mg PO LAM 09/21/19 09/21/19 History Ergocalciferol (Vitamin D2) 50,000 unit PO TH 09/21/19 09/21/19 History [Drisdol] Fish Oil/Dha/Epa [Fish Oil 1,200 1 cap PO DAILY 09/21/19 09/21/19 History mg Fish Oil] Fluticasone/Salmeterol 1 puff INHALATION RT-BID 09/21/19 09/21/19 History [Fluticasone-Salmeterol 232-14] LORazepam [Ativan] 0.5 mg PO DAILY 09/21/19 09/21/19 History Magnesium Oxide [Mag-Ox] 400 mg PO DAILY 09/21/19 09/21/19 History Meloxicam 15 mg PO HS 09/21/19 09/21/19 History Metoprolol Succinate [Toprol XL] 100 mg PO DAILY@219909/21/19 09/21/19 History Nitrofurantoin Monohyd/M-Cryst 100 mg PO Q12HR 09/21/19 09/21/19 History [Macrobid] Sertraline [Zoloft] 50 mg PO DAILY@0 09/21/19 09/21/19 History Allergies Allergy/AdvReac Type Severity Reaction Status Date / Time steroids AdvReac Unknown Uncoded 09/21/19 22:52 Physical Exam Vitals: Vital Signs Temp Pulse Pulse Resp BP BP Pulse Ox 09/22/19 04:39 97.8 F 78 18 150/90 98 09/22/19 01:31 98.5 F 87 16 160/93 96 09/22/19 00:12 80 17 176/100 99 09/21/19 23:13 95 18 143/109 98 09/21/19 21:41 98.5 F 125 H 22 155/94 100 Intake and Output 09/21/19 09/22/19 09/22/19 22:59 06:59 14:59 Intake Total 400 Balance 400 Intake: Intake, IV Titration 400 Amount Sodium Chloride 0.9% 1, 400 000 ml @ 100 mls/hr IV . Q10H CARLEE Rx#:[id number] Other: Voiding Method Toilet # Voids 2 Weight 58.967 kg 61.5 kg - Constitutional General appearance: average body habitus, cooperative, no acute distress - EENT Eyes: anicteric sclerae, EOMI ENT: hearing grossly normal - Neck Neck: no lymphadenopathy - Respiratory Respiratory: bilateral: diminished - Cardiovascular Rhythm: regular Heart sounds: normal: S1, S2 Abnormal Heart Sounds: no systolic murmur, no diastolic murmur, no rub, no S3 Gallop, no S4 Gallop, no click, no other leg Peripheral Edema: bilateral: None - Gastrointestinal General gastrointestinal: no absent bowel sounds, no decreased bowel sounds, no distended, no hepatomegaly, no hyperactive bowel sounds, normal bowel sounds, no organomegaly, no rigid, no scaphoid, soft, no splenomegaly, no tenderness, no umbilical hernia, no ventral hernia Localized gastrointestinal: tender: epigastric periumbilical - Integumentary 3 well-circumscribed lesions on the right upper arm, one on the bridge of the nose Integumentary: normal - Neurologic Neurologic: CNII-XII intact - Musculoskeletal Musculoskeletal: strength equal bilaterally - Psychiatric Psychiatric: A&O x's 3, appropriate affect, intact judgment & insight Results CBC & Chem 7: 09/21/19 22:29 09/21/19 22:29 Labs: Abnormal Lab Results - Last 24 Hours (Table) 09/21/19 09/21/19 Range/Units 22:29 22:29 WBC 14.3 H (3.8-10.6) k/uL RBC 3.70 L (3.80-5.40) m/uL Neutrophils # 12.0 H (1.3-7.7) k/uL Sodium 126 L (137-145) mmol/L Potassium 3.2 L (3.5-5.1) mmol/L Chloride 95 L (98-107) mmol/L Carbon Dioxide 21 L (22-30) mmol/L BUN 19 H (7-17) mg/dL Glucose 116 H (74-99) mg/dL CT scan - abdomen: report reviewed CT scan - pelvis: report reviewed Assessment and Plan (1) Von Willebrands disease Narrative/Plan: Case discussed with Dr. Engle. In preparation for tomorrow's procedures, DDAVP at 0.3 mcg/kg equaling 18.45 g will be administered 30 min prior to procedure. Close monitoring for bleeding postoperatively. If any bleeding, recommend cryoprecipitate to be administered. Recommended patient to have a [facility] locally for when necessary follow-up. She verbalized understanding. Contact information will be placed in patient's chart. Current Visit: Yes Status: Chronic Priority: Medium Code(s): D68.0 - VON WILLEBRAND'S DISEASE SNOMED Code(s): 964977319
--- NOTE | 2019-09-22 10:28 | CONS ---
CONSULTATION DATE OF CONSULTATION: 09/22/2019 REASON FOR CONSULTATION: Acute upper gastrointestinal bleed. HISTORY OF PRESENT ILLNESS: The patient is a 59-year-old pleasant white female who came to the emergency room yesterday complaining of severe nausea, vomiting, and hematemesis. The patient developed right-sided flank pain about 5 days ago and she was seen on outpatient basis and was diagnosed with possible UTI. She was started on some antibiotics and 2 day later started having several episodes of nausea, vomiting. Initially, the vomitus was bilious in nature, but on Sunday it turned coffee colored. She had about 4 or 5 episodes of coffee-ground emesis on Sunday and on Sunday which was yesterday evening she had multiple episodes of bright red emesis. She got concerned and came to the emergency room and subsequently admitted to the hospital for further evaluation. She never had this kind of bleeding in the past. No prior history of peptic ulcer disease. Recently, she had an ankle sprain and was started on meloxicam. She denies any other NSAID use. No prior history of peptic ulcer disease. She was diagnosed with von Willebrand's disease several years ago and follows with Hematology in [place]. PAST MEDICAL HISTORY: Her past medical history is significant for chest pain, asthma, COPD, GERD, hypertension, degenerative joint disease, seizure disorder. PAST SURGICAL HISTORY: Cardiac catheterization, tonsillectomy, right lumpectomy. MEDICATIONS: Medications at home include magnesium oxide, Ativan, fish oil, vitamin D3, Fosamax, Ventolin, Zoloft, Macrobid, meloxicam, and Toprol. ALLERGIES: STEROIDS. SOCIAL HISTORY: She is a smoker and uses marijuana. No alcohol use. FAMILY HISTORY: Mother has hypertension. REVIEW OF SYSTEMS: CARDIOPULMONARY: She denies any chest pain or shortness of breath. : No dysuria, hematuria. MUSCULOSKELETAL: Unremarkable, other than recent right ankle sprain for which she started taking meloxicam. NEUROLOGY: Unremarkable. PSYCHIATRIC: Unremarkable. ENT/VISION: Unremarkable. CONSTITUTIONAL: No recent weight loss. No fever, chills, night sweats. HEMATOLOGY: von Willebrand's disease as mentioned above. PHYSICAL EXAMINATION: On physical examination, she appears comfortable. No apparent distress. Vital signs are stable. Blood pressure is 133/86, pulse is 78, temperature 97.8. HEENT EXAMINATION: Unremarkable. Conjunctivae pink. Sclerae anicteric. Oral cavity no lesions. NECK: No JVD or lymph node enlargement. CHEST: Clear to auscultation. HEART: Regular rate and rhythm. ABDOMEN: Soft. It was nontender, nondistended. Bowel sounds are positive. No organomegaly. EXTREMITIES: No pedal edema. SKIN: No rashes. NEUROLOGIC: Alert and oriented x3. No focal deficits. LABS: Labs done at the time of admission to the hospital: Hemoglobin was 12.2, WBC 14.3, platelets normal. PT, INR within normal limits. Basic metabolic panel is within normal limits. BUN 19, creatinine 0.54. Sodium was 126, potassium 3.2. No repeat CBC available from today. IMPRESSION: 1. This is a lady who presents to the hospital with nausea, vomiting, coffee-ground emesis and hematemesis for the last 4 to 5 days duration. She initially had multiple episodes of bilious emesis followed by coffee-grounds emesis and yesterday had 3 episodes of hematemesis. She currently hemodynamically stable and last hemoglobin at the time of admission to the hospital was 12.2. Repeat hemoglobin is still pending. Most likely dealing with a Jessica-Dave tear, but with the fact that she is taking meloxicam for right ankle sprain, possibility of peptic ulcer disease also needs to be considered. 2. History of von Willebrand's disease, follows with Hematology in our town. 3. Recent urinary tract infection, was on antibiotics until she was admitted to the hospital. 4. History of chronic obstructive pulmonary disease. RECOMMENDATIONS: 1. Start on Protonix 40 mg twice daily. 2. Will start her on a clear liquid diet and antiemetics as needed. 3. We will consult Hematology for recommendations regarding need for DDAVP prior to planned endoscopic procedure for tomorrow. 4. Schedule her for EGD tomorrow. I discussed with the patient, risks, benefits and complications of procedure and she is agreeable to it. Thank you for this consultation. MMODL / IJN: [id number] /
[2019-09-22 10:29] LABS: Basophils % (A) 0 %; Eosinophils # (A) 0.2 k/uL (0-0.7); Eosinophils % (A) 3 %; HCT 30.7 % (34.0-46.0); HGB 10.3 gm/dL (11.4-16.0); Lymphocytes # (A) 1.6 k/uL (1.0-4.8); Lymphocytes % (A) 21 %; MCH 32.5 pg (25.0-35.0); MCHC 33.4 g/dL (31.0-37.0); MCV 97.2 fL (80.0-100.0); Mean Platelet Volume 7.8; Monocytes # (A) 0.4 k/uL (0-1.0); Monocytes % (A) 5 %; Neutrophils # (A) 5.4 k/uL (1.3-7.7); Neutrophils % (A) 69 %; Platelet Count 290 k/uL (150-450); RBC 3.15 m/uL (3.80-5.40); RDW 11.8 % (11.5-15.5); WBC 7.8 k/uL (3.8-10.6)
[2019-09-22] MEDS ORDERED: ALBUTEROL HFA INHALER INHALATION PRN (12:02)
[2019-09-22] MEDS ORDERED: Potassium Replacement Protocol 1 EACH MISC MISCELLANE PRN (12:27)
[2019-09-22] MEDS ORDERED: Magnesium Replacement Protocol 1 EACH MISC MISCELLANE PRN (12:27)
[2019-09-22 14:00] LABS: Appearance,Urine Clear (Clear); Bilirubin,Urine Negative (Negative); Blood,Urine Negative (Negative); Color,Urine Yellow; Glucose,Urine (UA) Negative (Negative); Ketones,Urine Negative (Negative); Leukocyte Esterase,Urine Negative (Negative); Nitrite,Urine Negative (Negative); Protein,Urine Negative (Negative); Specific Gravity,Urine 1.012 (1.001-1.035); Urobilinogen,Urine <2.0 mg/dL (<2.0)
[2019-09-22 14:44] LABS: African American GFR (CKD) >90 (>60 ml/min/1.73 sqM); Anion Gap 6 mmol/L; Blood Urea Nitrogen 9 mg/dL (7-17); Calcium 8.8 mg/dL (8.4-10.2); Carbon Dioxide 26 mmol/L (22-30); Chloride 100 mmol/L (98-107); Glucose 98 mg/dL (74-99); Non-African American GFR(CKD) >90 (>60 ml/min/1.73 sqM); Sodium 132 mmol/L (137-145)
[2019-09-22] MEDS: NICOTINE 14MG/24HR PATCH TRANSDERM SCH (15:03)
[2019-09-22] MEDS ORDERED: LORazepam 0.5 MG TAB PO STA (15:05)
[2019-09-22] MEDS: SYMBICORT 160-4.5 MCG INHALER INHALATION SCH (19:54)
[2019-09-22] MEDS: METOPROLOL SUCCINATE (ER) 100 MG TAB.ER.24H PO SCH (21:19)
[2019-09-22] MEDS: SERTRALINE 50 MG TAB PO SCH (21:19)
--- NOTE | 2019-09-22 23:14 | HP ---
HISTORY AND PHYSICAL DATE OF SERVICE: 09/22/2019 CHIEF COMPLAINT: Diarrhea and vomiting as well as upper GI bleeding. HISTORY OF PRESENT ILLNESS: This is a 59-year-old woman with past medical history of multiple medical problems, including history of asthma, history of chest pain, COPD, GERD, hypertension, history of DJD, history of seizure disorder, being followed by Dr. Alcantar in the outpatient setting. He also has a history of Takotsubo syndrome as well as von Willebrand disease. The patient was complaining of some diarrhea. Subsequently patient had nausea, vomiting, and initial vomitus was normal-colored, according to her, but subsequently the patient had coffee-ground and red-colored hematemesis. The patient had several episodes. The patient also had black-colored stools. The patient came to [facility] and was admitted for further evaluation and treatment. There is no history of any fever, rigors or chills at this time. Sodium is 126, potassium 3.2. ESR is 41. D- dimer is 0.96. C-reactive protein is 15.6. Coronavirus test was negative. Influenza was also negative. The patient is being closely monitored. PAST MEDICAL HISTORY: History of asthma, history of COPD, GERD, hypertension, history of DJD, history of Takotsubo syndrome. MEDICATIONS: Home medications are: 1. Fish oil one p.o. daily. 2. Zoloft 50 mg p.o. daily. 3. Magnesium oxide 400 mg p.o. daily. 4. Vitamin D2, 50,000 . 5. Macrobid 100 mg p.o. b.i.d. 6. Metoprolol 100 mg p.o. daily. 7. Meloxicam 15 mg at bedtime. 8. Fluticasone/salmeterol one puff b.i.d. 9. Fosamax 70 mg Sunday. 10.Ativan 0.5 mg p.o. daily. 11.Albuterol two puffs q.4 p.r.n. ALLERGIES: STEROIDS. FAMILY HISTORY: History of hypertension. SOCIAL HISTORY: History of THC. History of smoking, continued, ongoing. REVIEW OF SYSTEMS: ENT: No diminished vision. No diminished hearing. CARDIOVASCULAR: No angina or palpitations. RESPIRATORY: As mentioned earlier. GI: As mentioned earlier. : No dysuria, retention. NERVOUS SYSTEM: No numbness, weakness. ALLERGY/IMMUNOLOGY: No asthma or hayfever. MUSCULOSKELETAL: As mentioned earlier. HEMATOLOGY/ONCOLOGY: No history of anemia. ENDOCRINE: No history of diabetes or hypothyroidism. CONSTITUTIONAL: As mentioned earlier. DERMATOLOGY: Negative. RHEUMATOLOGY: Negative. PSYCHIATRY: As mentioned earlier. PHYSICAL EXAMINATION: Alert and oriented x3. Pulse 66, blood pressure 115/65, respirations 17, temperatures 98 degrees, pulse ox 99% on room air. HEENT: Conjunctivae normal. Oral mucosa moist. NECK: No jugular venous distention. No carotid bruit. No lymph node enlargement. CARDIOVASCULAR: S1, S2 muffled. No S3, no S4. RESPIRATORY: Breath sounds diminished at the bases. A few scattered rhonchi. ABDOMEN: Soft, nontender. No mass palpable. No guarding. No rigidity. LEGS: No edema. No swelling. NERVOUS SYSTEM: Higher function as mentioned earlier. Moves all four limbs. No focal motor or sensory deficits. LYMPHATICS: No lymph node enlargement in the neck or axillae. SKIN: No ulcer, rash, bleeding. JOINTS: No active deforming arthropathy. LABS: WBC is 14.3, hemoglobin 12.2. Sodium 136, potassium 3.2. C-reactive protein is 15.6. The coronavirus and influenza are negative. ASSESSMENT: 1. Vomiting and diarrhea with possible upper gastrointestinal bleeding; rule out viral syndrome. 2. COVID-19 test negative. 3. Hyponatremia. 4. Hypokalemia. 5. Increased white cell count, present on admission. 6. Anemia, normocytic anemia of chronic disease. 7. Increased C-reactive protein. 8. History of asthma. 9. History of chest pain, angina. 10.Chronic obstructive pulmonary disease. 11.Gastroesophageal reflux disease. 12.Hypertension. 13.Degenerative joint disease. 14.Seizure disorder. 15.History of Takotsubo syndrome. 16.History of von Willebrand's disease. 17.History of teratoma of neck. 18.History of anxiety and depression. 19.History of continued ongoing nicotine dependence. 20.History of THC. RECOMMENDATIONS AND DISCUSSION: In this 59-year-old woman who presented with multiple complex medical issues issues, we will monitor the patient closely. Gastroenterology evaluation. Hematology/Oncology evaluation. Recommend proton pump inhibitors and clear liquids. Possible endoscopies. As mentioned, COVID-19 test is negative. Resume the rest of the medications. Prognosis guarded. Further recommendations to follow. DVT prophylaxis and incentive spirometry. A copy of this dictation is being forward to Dr. Alcantar, who is the primary physician. MMODL / IJN: [id number] / MTDD
[2019-09-23] MEDS: MORPHINE SULFATE 4 MG/ML SYRINGE IVP PRN ×2 (02:12→21:21)
[2019-09-23 07:38] LABS: Basophils % (A) 1 %; Eosinophils # (A) 0.3 k/uL (0-0.7); Eosinophils % (A) 7 %; HCT 31.2 % (34.0-46.0); HGB 10.3 gm/dL (11.4-16.0); Lymphocytes # (A) 1.8 k/uL (1.0-4.8); Lymphocytes % (A) 34 %; MCH 32.6 pg (25.0-35.0); MCHC 32.9 g/dL (31.0-37.0); MCV 98.9 fL (80.0-100.0); Mean Platelet Volume 8.2; Monocytes # (A) 0.3 k/uL (0-1.0); Monocytes % (A) 6 %; Neutrophils # (A) 2.7 k/uL (1.3-7.7); Neutrophils % (A) 51 %; Platelet Count 298 k/uL (150-450); RBC 3.15 m/uL (3.80-5.40); RDW 11.9 % (11.5-15.5); WBC 5.2 k/uL (3.8-10.6)
[2019-09-23] MEDS: SYMBICORT 160-4.5 MCG INHALER INHALATION SCH ×2 (08:00→19:38)
[2019-09-23 08:07] LABS: African American GFR (CKD) >90 (>60 ml/min/1.73 sqM); Anion Gap 6 mmol/L; Blood Urea Nitrogen 4 mg/dL (7-17); Calcium 8.8 mg/dL (8.4-10.2); Carbon Dioxide 24 mmol/L (22-30); Chloride 106 mmol/L (98-107); Glucose 78 mg/dL (74-99); Non-African American GFR(CKD) >90 (>60 ml/min/1.73 sqM); Sodium 136 mmol/L (137-145)
[2019-09-23 08:18] LABS: Potassium 4.4 mmol/L (3.5-5.1)
[2019-09-23] MEDS: SODIUM CHLORIDE 0.9% 1,000 ML IV SCH ×2 (08:21→19:50)
[2019-09-23] MEDS ORDERED: PROPOFOL 10 MG/ML 20 ML VIAL IV ONE (08:30)
[2019-09-23] MEDS ORDERED: IV FLUID CONTINUATION 1,000 ML IV ONE (08:47)
[2019-09-23] MEDS ORDERED: SODIUM CHLORIDE 0.9% 100 ML IV ONE (08:48)
[2019-09-23] MEDS ORDERED: DESMOPRESSIN ACETATE 4 MCG/ML VIAL (MDV) IV ONE (09:00)
[2019-09-23] MEDS ORDERED: DESMOPRESSIN ACETATE 18 MCG in SODIUM CHLORIDE 0.9% 50 ML IVPB ONE (09:00)
--- NOTE | 2019-09-23 09:00 | P.PCN ---
Date of Procedure: 09/23/19 Procedure(s) Performed: BRIEF HISTORY: Patient is a 59-year-old, pleasant, white female admitted hospital with acute upper GI bleed. She is been having epigastric pain with nausea vomiting coffee-ground emesis followed by hematemesis for the last 4 days. Last 11 was 10.3 g/dL she is been taking meloxicam for the last few weeks for an ankle sprain.. PROCEDURE PERFORMED: Esophagogastroduodenoscop with biopsy . PREOPERATIVE DIAGNOSIS: acute upper GI bleed. IV sedation per anesthesia. PROCEDURE: After informed consent was obtained, the patient was brought into the endoscopy unit. IV sedation was administered by Anesthesia under continuous monitoring. Initially the Olympus GIF-140 video endoscope was inserted into the mouth. Esophagus intubated without any difficulty. It was gradually advanced into the stomach and duodenum and carefully examined. The bulb and the second part of the duodenum appeared normal. The scope at this time was withdrawn to the stomach, adequately insufflated with air, and upon careful examination, mucosa of the antrum, had gastritis and there was a 2 cm clean-based antral ulcer with no active bleeding and the margins were biopsied. The body, cardia and the fundus appeared normal. The scope was then withdrawn into the esophagus. The GE junction was located at 39 cm from the incisors. Small sliding Hiatal hernia noted. There was a short segment of Mueller's esophagus extending 7-8 mm proximal to the GE junction which was biopsied. There were linear erosions and ulcerations in the distal esophagus consistent with LA grade C reflux esophagitis. Rest of the esophagus appeared normal and the patient tolerated the procedure well. IMPRESSION: 1. 2 cm clean-based antral ulcer with no active bleeding status post biopsy. 2. Short segment Mueller's esophagus and LA grade C reflux esophagitis 3 . Small hiatal hernia. RECOMMENDATIONS: The findings of this examination were discussed with the patient.. She'll be continued on Protonix 40 mg twice daily. Diet will be advanced as tolerated. Avoid NSAIDs and stop meloxicam. We'll plan a repeat u pper endoscopy in 3 months.
[2019-09-23] MEDS: MAGNESIUM OXIDE 400 MG TAB PO SCH (10:55)
[2019-09-23] MEDS: NICOTINE 14MG/24HR PATCH TRANSDERM SCH ×2 (10:55→11:02)
[2019-09-23] MEDS: PANTOPRAZOLE 40 MG/10 ML VIAL IVP SCH ×2 (10:55→19:49)
[2019-09-23] MEDS: LORazepam 0.5 MG TAB PO SCH (10:55)
[2019-09-23] MEDS: HYDROcodone/APAP 5-325MG 1 EACH TAB PO PRN ×2 (11:00→19:49)
--- NOTE | 2019-09-23 13:55 | P.PN ---
Subjective Progress Note Date: 09/23/19 Principal diagnosis: hematemesis, von Willebrand's disease. Patient is doing well postoperatively, she denies any bleeding, hematochezia emesis, no new or progressive abdominal discomfort Objective - Vital Signs Vital signs: Vital Signs Temp 97.8 F 09/23/19 06:00 Pulse 62 09/23/19 06:00 Resp 18 09/23/19 06:00 BP 119/75 09/23/19 06:00 Pulse Ox 99 09/23/19 06:00 Intake & Output 09/22/19 09/23/19 09/23/19 18:59 06:59 18:59 Intake Total 1400 250 20 Balance 1400 250 20 Intake: IV 20 Intake, IV Titration 800 Amount Sodium Chloride 0.9% 1, 800 000 ml @ 100 mls/hr IV . Q10H CARLEE Rx#:[id number] Oral 600 250 Other: Voiding Method Toilet Toilet # Voids 1 2 1 - Constitutional General appearance: Present: average body habitus, cooperative, no acute distress - EENT Eyes: Present: anicteric sclerae, EOMI ENT: Present: hearing grossly normal - Respiratory Details: respirations even and unlabored - Cardiovascular Details: skin warm and dry to the touch - Gastrointestinal Gastrointestinal Comment(s): mild epigastric tenderness to deep palpation - Neurologic Neurologic: Present: CNII-XII intact - Musculoskeletal Musculoskeletal: Present: strength equal bilaterally - Psychiatric Psychiatric: Present: A&O x's 3, appropriate affect, intact judgment & insight - Labs CBC & Chem 7: 09/23/19 07:20 09/23/19 07:20 Labs: Abnormal Lab Results - Last 24 Hours (Table) 09/22/19 09/23/19 09/23/19 Range/Units 12:31 07:20 07:20 RBC 3.15 L (3.80-5.40) m/uL Hgb 10.3 L (11.4-16.0) gm/dL Hct 31.2 L (34.0-46.0) % Sodium 132 L 136 L (137-145) mmol/L BUN 4 L (7-17) mg/dL Creatinine 0.50 L (0.52-1.04) mg/dL Assessment and Plan (1) Von Willebrands disease Narrative/Plan: Patient doing well postoperatively. No evidence to suggest acute bleeding Old medical records reviewed. Noted that patient was seen by Dr. Mcclure in 2012. She was worked up, felt to have a milder form of von Willebrand's disease, type II, Antigen normal with activity less in comparison. Plan is to follow up with Dr. 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 Patient verbalized understanding Current Visit: Yes Status: Chronic Priority: Medium Code(s): D68.0 - VON WILLEBRAND'S DISEASE SNOMED Code(s): 473246458 Plan: Doctor attests: I performed a history and physical examination of this patient, developed impression and plan of care, discussed with dictator. I agree with dictators note, documented as a scribe.
--- NOTE | 2019-09-23 15:14 | PN ---
PROGRESS NOTE DATE OF SERVICE: 09/23/2019 This is a 59-year-old woman with past medical history of multiple medical problems, admitted with vomiting, diarrhea, GI bleeding. The COVID was negative and the patient underwent an EGD by Dr. Engle today which showed evidence of 2 cm clean based antral ulcer with no active bleeding and short-segment of Mueller's esophagus also noted low- grade reflux esophagitis, small hiatal hernia in the EGD. The patient will be closely monitored at this time. Hemoglobin today this morning is 10.3. No chest pain. No palpitations. No fever. No hematochezia. PHYSICAL EXAM: On exam, alert and oriented x3. Pulse is 62, blood pressure 119/74, respiration 18, temperature 97.8, pulse ox 98% on room air. HEENT: Conjunctivae normal. NECK: No jugular venous distention. RESPIRATION: Breath sounds diminished at the bases. No rhonchi. No crackles. ABDOMEN: Soft, nontender. No mass palpable. LEGS: No edema,no swelling. NERVOUS SYSTEM: No focal deficit. LABS: WBC is 5.8, hemoglobin is 10.2, sodium 136. ASSESSMENT: 1. Vomiting, diarrhea with possible upper gastrointestinal bleeding, status post EGD showing 2 cm clean based antral ulcer with no active bleeding. 2. Short-segment of Mueller's esophagus and low-grade reflux esophagitis. 3. Small hiatal hernia in the EGD. 4. COVID-19 test negative. 5. Hyponatremia. 6. Hypokalemia. 7. Increased WBC present on admission. 8. Anemia, normocytic anemia of chronic disease. 9. Increased CRP. 10.History of asthma. 11.History of chest pain, angina. 12.Chronic obstructive pulmonary disease. 13.Gastroesophageal reflux disease. 14.Hypertension. 15.History of degenerative joint disease. 16.Degenerative]seizure disorder history of takotsubo syndrome. 17.One history of von Willebrand's disease next history of teratoma neck otherwise infant. 18.History of anxiety, depression. 19.Continued ongoing nicotine dependence. 20.History of THC. RECOMMENDATIONS AND DISCUSSION: This is a 59-year-old woman who presented with multiple complex medical issues, will monitor the patient closely, continue with the current medications, continue to monitor symptomatic treatment. As this time, I recommend continue with current medication. Continue with the Protonix, increase with the diet. Increase ambulation. Guarded prognosis. Further recommendations to follow. MMODL / IJN: [id number] /
[2019-09-23] MEDS: SERTRALINE 50 MG TAB PO SCH (21:21)
[2019-09-23] MEDS: METOPROLOL SUCCINATE (ER) 100 MG TAB.ER.24H PO SCH (21:21)
[2019-09-24] MEDS: HYDROcodone/APAP 5-325MG 1 EACH TAB PO PRN (02:58)
[2019-09-24] MEDS: ONDANSETRON 4 MG/2 ML VIAL IVP PRN (02:59)
[2019-09-24] MEDS: SODIUM CHLORIDE 0.9% 1,000 ML IV SCH ×2 (03:00→08:10)
[2019-09-24] MEDS: ALPRAZolam 0.25 MG TAB PO PRN ×3 (05:16→18:38)
[2019-09-24] MEDS: SYMBICORT 160-4.5 MCG INHALER INHALATION SCH ×2 (07:48→19:30)
[2019-09-24 08:08] LABS: African American GFR (CKD) >90 (>60 ml/min/1.73 sqM); Anion Gap 9 mmol/L; Blood Urea Nitrogen 4 mg/dL (7-17); Calcium 8.4 mg/dL (8.4-10.2); Carbon Dioxide 21 mmol/L (22-30); Chloride 91 mmol/L (98-107); Glucose 86 mg/dL (74-99); Non-African American GFR(CKD) >90 (>60 ml/min/1.73 sqM); Potassium 3.8 mmol/L (3.5-5.1); Sodium 121 mmol/L (137-145)
[2019-09-24] MEDS: LORazepam 0.5 MG TAB PO SCH (08:09)
[2019-09-24] MEDS: MAGNESIUM OXIDE 400 MG TAB PO SCH (08:09)
[2019-09-24] MEDS: PANTOPRAZOLE 40 MG/10 ML VIAL IVP SCH ×2 (08:09→20:26)
[2019-09-24] MEDS: NICOTINE 14MG/24HR PATCH TRANSDERM SCH (08:55)
[2019-09-24 09:41] LABS: Basophils % (A) 0 %; Eosinophils # (A) 0.3 k/uL (0-0.7); Eosinophils % (A) 5 %; HCT 29.5 % (34.0-46.0); Lymphocytes # (A) 1.6 k/uL (1.0-4.8); Lymphocytes % (A) 25 %; MCH 32.9 pg (25.0-35.0); MCHC 33.8 g/dL (31.0-37.0); MCV 97.2 fL (80.0-100.0); Mean Platelet Volume 7.8; Monocytes # (A) 0.3 k/uL (0-1.0); Monocytes % (A) 4 %; Neutrophils % (A) 64 %; Platelet Count 362 k/uL (150-450); RBC 3.04 m/uL (3.80-5.40); WBC 6.4 k/uL (3.8-10.6)
--- NOTE | 2019-09-24 12:21 | P.NPCON ---
History of Present Illness - Reason for Consult hyponatremia - History of Present Illness Reason for consultation: Hyponatremia History of present illness: Patient is a 59-year-old female seen in renal consultation for hyponatremia. Patient's sodium level on admission on 09/21/2019 was 126. Patient was started on IV fluids and sodium gradually improved to 136 as of yesterday. This morning it was 121 and on repeat it was 123. Patient presented to the hospital on September 20 with nausea and vomiting. She was also having low back discomfort. She underwent EGD on September 22 Fitc revealed a 2 cm antral ulcer without any active bleeding. She is currently maintained on Protonix. She also received 18 g of DDAVP prior to the EGD yesterday. She does made to drinking quite a bit of water. Oral intake is fair. No vomiting or diarrhea today. Denies any melena or hematochezia. No chest pain or shortness of breath. No history of malignancy. She is not on any thiazide diuretics. No edema. Vital signs are stable. General: The patient appeared well nourished and normally developed. HEENT: Head exam is unremarkable. Neck is without jugular venous distension. LUNGS: Lungs are clear to auscultation and percussion. Breath sounds decreased. HEART: Rate and Rhythm are regular. First and second heart sounds normal. No murmurs, rubs or gallops. ABDOMEN: Abdominal exam reveals normal bowel sounds. Non-tender and non- distended. EXTREMITITES: No clubbing, cyanosis, or edema. Past Medical History Past Medical History: Asthma, Blood Disorder, Chest Pain / Angina, COPD, GERD/Reflux, Hypertension, Osteoarthritis (OA), Seizure Disorder, Skin Disorder Additional Past Medical History / Comment(s): TAKATSUBO SYNDROME Has had only o ne seizure in 2012 and takes no medications for seizures, von willebrand syndrome History of Any Multi-Drug Resistant Organisms: None Reported Past Surgical History: Heart Catheterization, Tonsillectomy Additional Past Surgical History / Comment(s): RIGHT LUMPECTOMY, Teratoma removal from neck when an Past Anesthesia/Blood Transfusion Reactions: Motion Sickness Additional Past Anesthesia/Blood Transfusion Reaction / Comment(s): Trouble waking up from anesthesia pt thinks it was caused by propofol Past Psychological History: Anxiety, Depression Smoking Status: Current every day smoker Past Alcohol Use History: Rare Past Drug Use History: Marijuana Additional Drug Use History / Comment(s): pt states medical marijuana - Past Family History Mother Family Medical History: Hypertension Medications and Allergies Home Medications Medication Instructions Recorded Confirmed Type Albuterol Inhaler (Bulk) [Ventolin 2 puff INHALATION RT-Q4H PRN 07/28/16 09/21/19 History Hfa Inhaler (Bulk)] Alendronate Sodium [Fosamax] 70 mg PO LAM 09/21/19 09/21/19 History Ergocalciferol (Vitamin D2) 50,000 unit PO TH 09/21/19 09/21/19 History [Drisdol] Fish Oil/Dha/Epa [Fish Oil 1,200 1 cap PO DAILY 09/21/19 09/21/19 History mg Fish Oil] Fluticasone/Salmeterol 1 puff INHALATION RT-BID 09/21/19 09/21/19 History [Fluticasone-Salmeterol 232-14] LORazepam [Ativan] 0.5 mg PO DAILY 09/21/19 09/21/19 History Magnesium Oxide [Mag-Ox] 400 mg PO DAILY 09/21/19 09/21/19 History Meloxicam 15 mg PO HS 09/21/19 09/21/19 History Metoprolol Succinate [Toprol XL] 100 mg PO DAILY@0 09/21/19 09/21/19 History Nitrofurantoin Monohyd/M-Cryst 100 mg PO Q12HR 09/21/19 09/21/19 History [Macrobid] Sertraline [Zoloft] 50 mg PO DAILY@2200 09/21/19 09/21/19 History Allergies Allergy/AdvReac Type Severity Reaction Status Date / Time steroids AdvReac Unknown Uncoded 09/21/19 22:52 Physical Exam Vitals: Vital Signs Temp Pulse Resp BP Pulse Ox 09/24/19 08:00 17 09/24/19 07:54 98.5 F 69 17 159/97 100 09/24/19 03:05 97.9 F 58 L 157/87 100 09/23/19 19:55 98.2 F 58 L 129/75 98 09/23/19 15:54 98.3 F 62 15 111/70 100 Intake and Output 09/23/19 09/24/19 09/24/19 22:59 06:59 14:59 Intake Total 480 480 Balance 480 480 Intake: Oral 480 480 Other: Voiding Method Toilet Results - Lab Results Most recent lab results Calcium 8.4 mg/dL (8.4-10.2) 09/24/19 07:26 Magnesium 2.0 mg/dL (1.6-2.3) 09/23/19 07:20 09/24/19 09:22 09/24/19 09:22 Assessment and Plan Plan: Assessment: 1. Acute euvolemic hyponatremia secondary to poor solute intake and further worsened with the use of saline and DDAVP which will lead to fluid retention. Sodium level was 136 yesterday and down to 121 this morning. On repeat it was 123. She is also on Zoloft which can induce SIADH. However she states she's been on Zoloft for about 2 years now. 2. Nausea and vomiting. Resolved. Status post EGD which revealed a 2 cm antral ulcer. She is maintained on protonix. GI is following. Plan: Hep-Lock IV fluids. 1200 mL fluid restriction. Encouraged oral intake, particularly protein. I will check urine sodium and urine osmolality as well. Repeat electrolytes in the morning. Potential discharge home tomorrow. Thank you for the consultation. I will continue to follow the patient with you during her hospital stay.
--- NOTE | 2019-09-24 14:02 | P.PN ---
Subjective Progress Note Date: 09/24/19 Principal diagnosis: This is a 59-year-old female who was recently admitted with vomiting diarrhea and also was found to have GI bleeding and is being closely monitored. Patient underwent EGD showing 2 cm antral ulcer with no active bleeding and a short segment Mueller's esophagitis with low-grade reflux esophagitis and also small hiatal hernia. Per patient she states there is been no active bleeding noted and denies any bowel movements at this time. Patient's vomiting has subsided and is no longer nauseated and tolerating diet. No reports of chest pain, shortness of breath, or palpitations. Patient's sodium was found to be 123 this morning and patient did receive a dose of DDAVP prior to the procedure yesterday. Nephrology was consulted. Patient will be on fluid restrictions and IV fluids will be discontinued. Will repeat a.m. labs. Patient denies any dizziness, lightheadedness and is alert and oriented 3. Objective - Vital Signs Vital signs: Vital Signs Temp 98.5 F 09/24/19 07:54 Pulse 69 09/24/19 07:54 Resp 17 09/24/19 08:00 BP 159/97 09/24/19 07:54 Pulse Ox 100 09/24/19 07:54 Intake & Output 09/23/19 09/24/19 09/24/19 18:59 06:59 18:59 Intake Total 70 960 Balance 70 960 Intake: IV 20 Intake, IV Titration 50 Amount Desmopressin Acetate 18 50 mcg In Sodium Chloride 0. 9% 50 ml @ 200 mls/hr IVPB ONCE ONE Rx#: [id number] Oral 960 Other: Voiding Method Toilet # Voids 1 - Exam Gen: This is a 59-year-old female sitting up in bed, awake, alert and oriented 3, well-developed, well-nourished. HEENT: Head is atraumatic, normocephalic. Pupils equal, round. Sclerae is anicteric. NECK: Supple. No JVD. No lymphadenopathy. No thyromegaly. LUNGS: Clear to auscultation. No wheezes or rhonchi. No intercostal retractions. HEART: Regular rate and rhythm. No murmur. ABDOMEN: Soft. Bowel sounds are present. No masses. Mild right upper quadrant tenderness noted upon palpation. EXTREMITIES: No pedal edema. No calf tenderness. NEUROLOGICAL: Patient is awake, alert and oriented x3. Cranial nerves 2 through 12 are grossly intact. - Labs CBC & Chem 7: 09/24/19 09:22 09/24/19 09:22 Labs: Abnormal Lab Results - Last 24 Hours (Table) 09/24/19 09/24/19 09/24/19 Range/Units 07:26 07:28 09:22 RBC 3.04 L (3.80-5.40) m/uL Hgb 10.0 L (11.4-16.0) gm/dL Hct 29.5 L (34.0-46.0) % Sodium 121 L (137-145) mmol/L Chloride 91 L (98-107) mmol/L Carbon Dioxide 21 L (22-30) mmol/L BUN 4 L (7-17) mg/dL Creatinine 0.48 L (0.52-1.04) mg/dL Osmolality 248 L* (280-301) mosm/kg 09/24/19 Range/Units 09:22 RBC (3.80-5.40) m/uL Hgb (11.4-16.0) gm/dL Hct (34.0-46.0) % Sodium 123 L (137-145) mmol/L Chloride (98-107) mmol/L Carbon Dioxide (22-30) mmol/L BUN (7-17) mg/dL Creatinine (0.52-1.04) mg/dL Osmolality (280-301) mosm/kg Assessment and Plan Assessment: Vomiting, diarrhea with possible upper gastrointestinal bleeding, status post EGD showing 2 cm clean-based antral ulcer with no active bleeding Short segment of Mueller's esophagus and low-grade reflux esophagitis Small hiatal hernia an EGD Covid 19 ruled out Hyponatremia Hypokalemia Increased WBC, present on admission Anemia, normocytic anemia of chronic disease CRP History of asthma, COPD, not in acute exacerbation gastroesophageal reflux disease Hypertension Degenerative seizure disorder history of takotsubo syndrome History of von Willebrand's disease History of anxiety, depression Continued ongoing nicotine dependence History of THC Plan: Patient will remain on fluid restrictions of 1200 mL and IV fluids have been discontinued. Will repeat sodium levels in the morning. Patient did receive a dose of DDAVP prior to EGD yesterday which may have been the cause of the sudden decrease in sodium level from 136 down to 123. Further recommendations to follow. Possible discharge in 24 hours.
[2019-09-24] MEDS: MORPHINE SULFATE 4 MG/ML SYRINGE IVP PRN (14:03)
--- NOTE | 2019-09-24 16:30 | P.PN ---
Subjective Progress Note Date: 09/24/19 Principal diagnosis: hematemesis, von Willebrand's disease. Patient cont to do well, she is frustrated because she didn't sleep well, she is having similar back pain that she is pending pain meds for. She's had some nausea, denies any hematemesis, denies any other bleeding, she bruises easily, not new, in known areas of trauma. Objective - Vital Signs Vital signs: Vital Signs Temp 97.7 F 09/24/19 14:41 Pulse 58 L 09/24/19 14:41 Resp 16 09/24/19 14:41 BP 144/75 09/24/19 14:41 Pulse Ox 100 09/24/19 14:41 Intake & Output 09/23/19 09/24/19 09/24/19 18:59 06:59 18:59 Intake Total 70 960 Balance 70 960 Intake: IV 20 Intake, IV Titration 50 Amount Desmopressin Acetate 18 50 mcg In Sodium Chloride 0. 9% 50 ml @ 200 mls/hr IVPB ONCE ONE Rx#: [id number] Oral 960 Other: Voiding Method Toilet # Voids 1 1 - Constitutional General appearance: Present: average body habitus, cooperative, no acute distress - EENT Eyes: Present: anicteric sclerae, EOMI, poor dentition ENT: Present: hearing grossly normal - Respiratory Respiratory: bilateral: CTA - Cardiovascular Heart sounds: normal: S1, S2 - Peripheral edema leg Peripheral Edema: bilateral: None - Gastrointestinal General gastrointestinal: Present: normal bowel sounds, soft Localized gastrointestinal: tender: epigastric periumbilical - Neurologic Neurologic: Present: CNII-XII intact - Musculoskeletal Musculoskeletal: Present: strength equal bilaterally - Psychiatric Psychiatric: Present: A&O x's 3, appropriate affect, intact judgment & insight - Labs CBC & Chem 7: 09/24/19 09:22 09/24/19 09:22 Labs: Abnormal Lab Results - Last 24 Hours (Table) 09/24/19 09/24/19 09/24/19 Range/Units 07:26 07:28 09:22 RBC 3.04 L (3.80-5.40) m/uL Hgb 10.0 L (11.4-16.0) gm/dL Hct 29.5 L (34.0-46.0) % Sodium 121 L (137-145) mmol/L Chloride 91 L (98-107) mmol/L Carbon Dioxide 21 L (22-30) mmol/L BUN 4 L (7-17) mg/dL Creatinine 0.48 L (0.52-1.04) mg/dL Osmolality 248 L* (280-301) mosm/kg 09/24/19 Range/Units 09:22 RBC (3.80-5.40) m/uL Hgb (11.4-16.0) gm/dL Hct (34.0-46.0) % Sodium 123 L (137-145) mmol/L Chloride (98-107) mmol/L Carbon Dioxide (22-30) mmol/L BUN (7-17) mg/dL Creatinine (0.52-1.04) mg/dL Osmolality (280-301) mosm/kg Assessment and Plan (1) Von Willebrands disease Narrative/Plan: Patient doing well postoperatively. Hgb has trended down, but stable today. Anemia work up ordered. She was worked up 2011 for von Willebrand's disease, type II. Follow up with Dr. 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 Patient verbalized understanding Current Visit: Yes Status: Chronic Priority: Medium Code(s): D68.0 - VON WILLEBRAND'S DISEASE SNOMED Code(s): 117832283
--- NOTE | 2019-09-24 19:02 | PN ---
PROGRESS NOTE DATE OF DICTATION: 09/24/2019 The patient is a 59-year-old pleasant white female admitted to the hospital with acute upper GI bleed. She underwent an upper endoscopy yesterday that revealed a 2 cm antral ulcer and she is presently on Protonix 40 mg q.12 hours. She is doing much better. She denies any further episodes of nausea, vomiting. She still has some epigastric discomfort. Today her sodium was down to 123 and hence Nephrology was consulted. The patient yesterday received desmopressin prior to upper endoscopy because of history of von Willebrand's disease. PHYSICAL EXAMINATION: She appears comfortable, in no apparent distress. Vital signs are stable. Blood pressure is 144/75, pulse rate 58, temperature 97.7. HEENT examination unremarkable. Conjunctivae pink. Sclerae anicteric. Oral cavity no lesions. NECK: No JVD or lymph node enlargement. CHEST: Clear to auscultation. HEART: Regular rate and rhythm. ABDOMEN: Soft. Bowel sounds are positive. No organomegaly. EXTREMITIES: No pedal edema. SKIN: No rashes. NEUROLOGIC: Alert and oriented x3. No focal deficits. LABS: Labs from today show sodium is 122 and repeat is 123. Hemoglobin 10.0. Rest of the labs are within normal limits. IMPRESSION: 1. Acute upper gastrointestinal bleed, status post esophagogastroduodenoscopy yesterday that showed a 2 cm antral ulcer with no active bleeding, presently on Protonix 40 mg twice daily and doing much better. Hemoglobin stable at 10 g/dL. 2. Hyponatremia, probably related to desmopressin that was given yesterday prior to endoscopy. Nephrology is following the patient closely. 3. Degenerative joint disease, on Mobic, currently on hold. RECOMMENDATIONS: 1. Continue with Protonix 40 mg twice daily. 2. Advance to a regular diet. 3. Repeat sodium tomorrow morning, and if it is stable she can be discharged home with an outpatient followup in 3 to 4 weeks. Thank you for this consultation. MMODL / IJN: [id number] /
[2019-09-24] MEDS: METOPROLOL SUCCINATE (ER) 100 MG TAB.ER.24H PO SCH (20:53)
[2019-09-24] MEDS: SERTRALINE 50 MG TAB PO SCH (20:54)
[2019-09-24 23:25] LABS: % Iron Saturation 17.13 (12.00-45.00)
[2019-09-24 23:33] LABS: Ferritin 122.4 ng/mL (10.0-291.0)
[2019-09-25] MEDS: ONDANSETRON 4 MG/2 ML VIAL IVP PRN ×3 (02:09→13:58)
[2019-09-25] MEDS: HYDROcodone/APAP 5-325MG 1 EACH TAB PO PRN ×3 (02:09→20:33)
[2019-09-25 08:06] LABS: African American GFR (CKD) >90 (>60 ml/min/1.73 sqM); Anion Gap 12 mmol/L; Blood Urea Nitrogen 4 mg/dL (7-17); Calcium 9.1 mg/dL (8.4-10.2); Carbon Dioxide 24 mmol/L (22-30); Chloride 82 mmol/L (98-107); Glucose 98 mg/dL (74-99); Magnesium 1.7 mg/dL (1.6-2.3); Non-African American GFR(CKD) >90 (>60 ml/min/1.73 sqM); Potassium 4.1 mmol/L (3.5-5.1)
[2019-09-25] MEDS: MAGNESIUM OXIDE 400 MG TAB PO SCH (08:09)
[2019-09-25] MEDS: NICOTINE 14MG/24HR PATCH TRANSDERM SCH (08:09)
[2019-09-25] MEDS: LORazepam 0.5 MG TAB PO SCH (08:09)
[2019-09-25] MEDS: PANTOPRAZOLE 40 MG/10 ML VIAL IVP SCH ×2 (08:09→20:33)
[2019-09-25] MEDS: MORPHINE SULFATE 4 MG/ML SYRINGE IVP PRN ×2 (08:09→21:54)
[2019-09-25 08:32] LABS: Sodium 118 mmol/L (137-145)
[2019-09-25] MEDS: SYMBICORT 160-4.5 MCG INHALER INHALATION SCH ×2 (08:38→19:48)
[2019-09-25] MEDS ORDERED: ERGOCALCIFEROL 50,000 UNIT CAP PO SCH (09:00)
[2019-09-25 10:30] LABS: HCT 34.7 % (34.0-46.0); HGB 11.8 gm/dL (11.4-16.0); MCH 32.9 pg (25.0-35.0); MCV 96.9 fL (80.0-100.0); Mean Platelet Volume 8.6; Platelet Count 371 k/uL (150-450); RBC 3.59 m/uL (3.80-5.40); RDW 11.9 % (11.5-15.5); WBC 6.7 k/uL (3.8-10.6)
[2019-09-25 10:36] LABS: Reticulocyte % 2.59 % (0.10-1.80)
[2019-09-25] MEDS ORDERED: FUROSEMIDE 10 MG/ML 2 ML VIAL IV ONE (12:12)
[2019-09-25] MEDS ORDERED: SODIUM CHLORIDE TAB 1 GM TAB PO SCH (12:15)
--- NOTE | 2019-09-25 12:16 | P.PN ---
Subjective Patient is seen in follow-up for hyponatremia. Sodium level is down to 118 today. Oral intake is fair. She is maintained on fluid resection. No edema. Blood pressure controlled. Vital signs are stable. General: The patient appeared well nourished and normally developed. HEENT: Head exam is unremarkable. Neck is without jugular venous distension. LUNGS: Lungs are clear to auscultation and percussion. Breath sounds decreased. HEART: Rate and Rhythm are regular. First and second heart sounds normal. No murmurs, rubs or gallops. ABDOMEN: Abdominal exam reveals normal bowel sounds. Non-tender and non- distended. No evidence of peritonitis. EXTREMITITES: No clubbing, cyanosis, or edema. Objective - Vital Signs Vital signs: Vital Signs Temp 97.8 F 09/25/19 07:00 Pulse 60 09/25/19 07:00 Resp 18 09/25/19 07:00 BP 110/52 09/25/19 07:00 Pulse Ox 100 09/25/19 07:00 Intake & Output 09/24/19 09/25/19 09/25/19 18:59 06:59 18:59 Intake Total 480 Output Total 100 Balance 380 Intake: Oral 480 Output: Urine 100 Other: Voiding Method Toilet Toilet # Voids 1 2 - Labs CBC & Chem 7: 09/25/19 07:39 09/25/19 07:39 Labs: Abnormal Lab Results - Last 24 Hours (Table) 09/24/19 09/24/19 09/24/19 Range/Units 07:28 09:22 09:22 RBC (3.80-5.40) m/uL Retic Count 2.59 H (0.10-1.80) % Sodium (137-145) mmol/L Chloride (98-107) mmol/L BUN (7-17) mg/dL Osmolality 248 L* (280-301) mosm/kg Iron 49 L (50-170) ug/dL 09/25/19 09/25/19 Range/Units 07:39 07:39 RBC 3.59 L (3.80-5.40) m/uL Retic Count (0.10-1.80) % Sodium 118 L* (137-145) mmol/L Chloride 82 L (98-107) mmol/L BUN 4 L (7-17) mg/dL Osmolality (280-301) mosm/kg Iron (50-170) ug/dL Assessment and Plan Plan: Assessment: 1. Acute euvolemic hyponatremia secondary to poor solute intake and further worsened with the use of saline and DDAVP which will lead to fluid retention. Sodium level 118 today. She is also on Zoloft which can induce SIADH. However she states she's been on Zoloft for about 2 years now. 2. Nausea and vomiting. Resolved. Status post EGD which revealed a 2 cm antral ulcer. She is maintained on protonix. GI is following. Plan: 1200 mL fluid restriction. Encouraged oral intake, particularly protein. add ensure 3 times daily. Check TSH and morning cortisol level. Start sodium chloride tablets 1 g 3 times daily. Lasix 20 mg IV once today. Repeat sodium level at 5 PM today.
[2019-09-25] MEDS ORDERED: TOLVAPTAN 15 MG 1/2 TABLET PO ONE (13:00)
[2019-09-25 13:14] LABS: Uric Acid 2.2 mg/dL (3.7-7.4)
--- NOTE | 2019-09-25 14:31 | P.PN ---
Subjective Progress Note Date: 09/25/19 Principal diagnosis: This is a 59-year-old female who was recently admitted with vomiting diarrhea and also was found to have GI bleeding and is being closely monitored. Patient underwent EGD showing 2 cm antral ulcer with no active bleeding and a short segment Mueller's esophagitis with low-grade reflux esophagitis and also small hiatal hernia. Per patient she states there is been no active bleeding noted and denies any bowel movements at this time. Patient's vomiting has subsided and is no longer nauseated and tolerating diet. No reports of chest pain, shortness of breath, or palpitations. Patient's sodium was found to be 123 this morning and patient did receive a dose of DDAVP prior to the procedure yesterday. Nephrology was consulted. Patient will be on fluid restrictions and IV fluids will be discontinued. Will repeat a.m. labs. Patient denies any dizziness, lightheadedness and is alert and oriented 3. 09/25/2019 Patient is seen and evaluated in follow-up today and sodium slightly worse today and at 118. Nephrology following. Patient will be initiated on sodium chloride tabs along with continued fluid restrictions and will also be given a dose of Lasix today. She states that she feels somewhat lethargic and groggy today. Patient is tolerating diet with some mild nausea this morning and was given Zofran and able to tolerate diet. Patient has been urinating with no difficulties although continues to follow. She denies any chest pain, shortness of breath, or palpitations. Patient also denies any bleeding noted at this time. Objective - Vital Signs Vital signs: Vital Signs Temp 97.8 F 09/25/19 07:00 Pulse 60 09/25/19 07:00 Resp 18 09/25/19 07:00 BP 110/52 09/25/19 07:00 Pulse Ox 100 09/25/19 07:00 Intake & Output 09/24/19 09/25/19 09/25/19 18:59 06:59 18:59 Intake Total 480 Output Total 100 Balance 380 Intake: Oral 480 Output: Urine 100 Other: Voiding Method Toilet Toilet # Voids 1 2 - Exam Gen: This is a 59-year-old female lying in bed, awake, alert and oriented 3, well-developed, well-nourished. Lethargic but alert. HEENT: Head is atraumatic, normocephalic. Pupils equal, round. Sclerae is anicteric. NECK: Supple. No JVD. No lymphadenopathy. No thyromegaly. LUNGS: Clear to auscultation. No wheezes or rhonchi. No intercostal retracti ons. HEART: Regular rate and rhythm. No murmur. ABDOMEN: Soft. Bowel sounds are present. No masses. No tenderness. EXTREMITIES: No pedal edema. No calf tenderness. NEUROLOGICAL: Patient is awake, alert and oriented x3. Cranial nerves 2 through 12 are grossly intact. - Labs CBC & Chem 7: 09/25/19 07:39 09/25/19 07:39 Labs: Abnormal Lab Results - Last 24 Hours (Table) 09/24/19 09/24/19 09/24/19 Range/Units 09:22 09:22 09:22 RBC (3.80-5.40) m/uL Retic Count 2.59 H (0.10-1.80) % Sodium (137-145) mmol/L Chloride (98-107) mmol/L BUN (7-17) mg/dL Uric Acid (3.7-7.4) mg/dL Iron 49 L (50-170) ug/dL RBC Folate 1,021 H (280 - 791) ng/mL 09/25/19 09/25/19 09/25/19 Range/Units 07:39 07:39 07:39 RBC 3.59 L (3.80-5.40) m/uL Retic Count (0.10-1.80) % Sodium 118 L* (137-145) mmol/L Chloride 82 L (98-107) mmol/L BUN 4 L (7-17) mg/dL Uric Acid 2.2 L (3.7-7.4) mg/dL Iron (50-170) ug/dL RBC Folate (280 - 791) ng/mL Assessment and Plan Assessment: Vomiting, diarrhea with possible upper gastrointestinal bleeding, status post EGD showing 2 cm clean-based antral ulcer with no active bleeding Short segment of Mueller's esophagus and low-grade reflux esophagitis Small hiatal hernia an EGD Covid 19 ruled out Hyponatremia, initiated on sodium chloride tabs 3 times daily and ensure 3 times daily, on fluid restrictions and IV fluids discontinued Hypokalemia, resolved Increased WBC, present on admission Anemia, normocytic anemia of chronic disease CRP History of asthma, COPD, not in acute exacerbation gastroesophageal reflux disease Hypertension Degenerative seizure disorder history of takotsubo syndrome History of von Willebrand's disease History of anxiety, depression Continued ongoing nicotine dependence History of THC Plan: Patient continues on fluid restrictions of 1200 mL and was initiated on sodium chloride that. Will repeat sodium levels. Nephrology following. Further recommendations to follow. Possible discharge in 24-48 hours.
--- NOTE | 2019-09-25 14:32 | P.PN ---
Subjective Progress Note Date: 09/25/19 Principal diagnosis: hematemesis, von Willebrand's disease. Patient doing well today, she feels a little slow in her thinking, her MS were increased this AM, she notes increased back pain after breakfast. No fever, nausea, vomiting, acute changes in bowel or bladder habits Objective - Vital Signs Vital signs: Vital Signs Temp 97.8 F 09/25/19 07:00 Pulse 60 09/25/19 07:00 Resp 18 09/25/19 07:00 BP 110/52 09/25/19 07:00 Pulse Ox 100 09/25/19 07:00 Intake & Output 09/24/19 09/25/19 09/25/19 18:59 06:59 18:59 Intake Total 480 Output Total 100 Balance 380 Intake: Oral 480 Output: Urine 100 Other: Voiding Method Toilet Toilet # Voids 1 2 - Constitutional General appearance: Present: average body habitus, cooperative, no acute distress - EENT Eyes: Present: anicteric sclerae, EOMI, dentition normal ENT: Present: hearing grossly normal - Respiratory Respiratory: bilateral: CTA, diminished - Cardiovascular Heart sounds: normal: S1, S2 - Peripheral edema leg Peripheral Edema: bilateral: None - Gastrointestinal General gastrointestinal: Present: normal bowel sounds, soft - Integumentary Integumentary: Present: normal, normal turgor - Neurologic Neurologic: Present: CNII-XII intact - Musculoskeletal Musculoskeletal: Present: strength equal bilaterally - Psychiatric Psychiatric: Present: A&O x's 3, appropriate affect, intact judgment & insight - Labs CBC & Chem 7: 09/25/19 07:39 09/25/19 07:39 Labs: Abnormal Lab Results - Last 24 Hours (Table) 09/24/19 09/24/19 09/24/19 Range/Units 09:22 09:22 09:22 RBC (3.80-5.40) m/uL Retic Count 2.59 H (0.10-1.80) % Sodium (137-145) mmol/L Chloride (98-107) mmol/L BUN (7-17) mg/dL Uric Acid (3.7-7.4) mg/dL Iron 49 L (50-170) ug/dL RBC Folate 1,021 H (280 - 791) ng/mL 09/25/19 09/25/1920 Range/Units 07:39 07:39 07:39 RBC 3.59 L (3.80-5.40) m/uL Retic Count (0.10-1.80) % Sodium 118 L* (137-145) mmol/L Chloride 82 L (98-107) mmol/L BUN 4 L (7-17) mg/dL Uric Acid 2.2 L (3.7-7.4) mg/dL Iron (50-170) ug/dL RBC Folate (280 - 791) ng/mL Assessment and Plan (1) Von Willebrands disease Narrative/Plan: Patient doing well postoperatively. Hgb recovering, WNL today. Anemia work up reviewed. B12 low normal, pending MMA before choosing to supplement. Iron studies are low normal. Will recheck at office visit and consider parenteral iron as pt does have SE of oral preparat ions. She was worked up 2011 for von Willebrand's disease, type II. Follow up with Dr. Mcclure in 6 weeks, reestablish oncology social work. Patient verbalized understanding Current Visit: Yes Status: Chronic Priority: Medium Code(s): D68.0 - VON WILLEBRAND'S DISEASE SNOMED Code(s): 543529199 Plan: Nephrology following very closely and managing hyponatremia. Multifactorial, exacerbated by administration of DDAVP for vonWB disease and need for invasive procedures.
--- NOTE | 2019-09-25 17:23 | PN ---
PROGRESS NOTE DATE OF SERVICE: 09/25/2019 Patient is a 59-year-old pleasant white female admitted to hospital with acute upper GI bleed. She had an upper endoscopy done 2 days ago that showed a 2 cm antral ulcer. Patient has history of von Willebrand's disease. She is doing well. She has some back pain. No abdominal pain. No nausea, vomiting. On a regular diet, tolerating well. Has hyponatremia and Dr. Bermudez following the patient closely. PHYSICAL EXAMINATION: Appears comfortable, in no apparent distress. Vital signs are stable. Blood pressure 116/74, pulse is 60, temperature 98.1. HEENT: Examination unremarkable, conjunctive are pink, sclerae nonicteric, oral cavity no lesions. NECK: No JVD or lymph node enlargement. CHEST: Clear to auscultation. HEART: Regular rate and rhythm. ABDOMEN: Soft. Bowel sounds are positive. No organomegaly. EXTREMITIES: No pedal edema. SKIN: No rashes. NEURO: Alert and oriented x3. No focal deficits. LABS: WBC 6.7, hemoglobin 11.8, platelets normal. Basic metabolic panel shows sodium of 118. Rest of the labs are within normal limits. Urine sodium was 252, urine osmolality was 606. Serum osmolality was 248. IMPRESSION: 1. Acute upper gastrointestinal bleed status post EGD 2 days ago, that showed a 2 cm antral ulcer. No further episodes of bleeding. 2. History of von Willebrand's disease. 3. Hyponatremia with worsening sodium. Dr. Bermudez following the patient closely. RECOMMENDATIONS: 1. Continue with Protonix 40 mg twice daily. 2. Continue with regular diet. 3. Avoid NSAIDs. 4. Repeat labs in the morning. Will follow with you closely. Thank you for this consultation. MMODL / IJN: [id number] /
[2019-09-25 19:52] VITALS: RESP 18
[2019-09-25] MEDS: METOPROLOL SUCCINATE (ER) 100 MG TAB.ER.24H PO SCH (21:52)
[2019-09-25] MEDS: SERTRALINE 50 MG TAB PO SCH (21:52)
[2019-09-26] MEDS: HYDROcodone/APAP 5-325MG 1 EACH TAB PO PRN (05:54)
[2019-09-26 07:33] LABS: Methylmalonic Acid 0.24 umol/L (<0.40)
[2019-09-26] MEDS: SYMBICORT 160-4.5 MCG INHALER INHALATION SCH (08:00)
[2019-09-26 08:48] LABS: African American GFR (CKD) >90 (>60 ml/min/1.73 sqM); Anion Gap 10 mmol/L; Blood Urea Nitrogen 12 mg/dL (7-17); Calcium 9.9 mg/dL (8.4-10.2); Carbon Dioxide 27 mmol/L (22-30); Chloride 97 mmol/L (98-107); Glucose 88 mg/dL (74-99); Magnesium 2.1 mg/dL (1.6-2.3); Non-African American GFR(CKD) 88 (>60 ml/min/1.73 sqM); Potassium 4.8 mmol/L (3.5-5.1); Sodium 134 mmol/L (137-145)
[2019-09-26] MEDS ORDERED: DEXTROSE 5% IN WATER 1,000 ML IV SCH (09:45)
[2019-09-26] MEDS: PANTOPRAZOLE 40 MG/10 ML VIAL IVP SCH (10:00)
[2019-09-26] MEDS: MAGNESIUM OXIDE 400 MG TAB PO SCH (10:00)
[2019-09-26] MEDS: NICOTINE 14MG/24HR PATCH TRANSDERM SCH ×2 (10:00→10:02)
--- NOTE | 2019-09-26 11:31 | P.PN ---
Subjective Patient is seen in follow-up for hyponatremia. Patient's sodium levels this admission has been in the range of 126-136. It came down to 118 this morning. She did receive a dose of DDAVP prior to her endoscopy. She received 1 dose of Samsca yesterday. Sodium level 134 this morning. She denies any chest pain or shortness of breath. Blood pressure controlled. Good urine output. Oral intake is good. Vital signs are stable. General: The patient appeared well nourished and normally developed. HEENT: Head exam is unremarkable. Neck is without jugular venous distension. LUNGS: Lungs are clear to auscultation and percussion. Breath sounds decreased. HEART: Rate and Rhythm are regular. First and second heart sounds normal. No murmurs, rubs or gallops. ABDOMEN: Abdominal exam reveals normal bowel sounds. Non-tender and non- distended. No evidence of peritonitis. EXTREMITITES: No clubbing, cyanosis, or edema. Objective - Vital Signs Vital signs: Vital Signs Temp 97.9 F 09/26/19 07:00 Pulse 75 09/26/19 07:45 Resp 18 09/26/19 07:00 BP 96/67 09/26/19 07:00 Pulse Ox 97 09/26/19 07:00 Intake & Output 09/25/19 09/26/19 09/26/19 18:59 06:59 18:59 Other: Voiding Method Toilet Toilet # Voids 1 2 - Labs CBC & Chem 7: 09/25/19 07:39 09/26/19 08:01 Labs: Abnormal Lab Results - Last 24 Hours (Table) 09/24/19 09/25/19 09/25/19 Range/Units 09:22 07:39 17:49 Sodium 123 L (137-145) mmol/L Chloride (98-107) mmol/L Uric Acid 2.2 L (3.7-7.4) mg/dL RBC Folate 1,021 H (280 - 791) ng/mL 09/26/19 Range/Units 08:01 Sodium 134 L (137-145) mmol/L Chloride 97 L (98-107) mmol/L Uric Acid (3.7-7.4) mg/dL RBC Folate (280 - 791) ng/mL Assessment and Plan Plan: Assessment: 1. Acute euvolemic hyponatremia secondary to poor solute intake and further worsened with the use of saline and DDAVP which will lead to fluid retention. Sodium level 134 today. She is also on Zoloft which can induce SIADH. However she states she's been on Zoloft for about 2 years now. Status post [facility], September 24. 2. Nausea and vomiting. Resolved. Status post EGD which revealed a 2 cm antral ulcer. She is maintained on protonix. GI is following. Plan: Discontinue fluid restriction. Start D5W at 100 mL an hour for 3 hours. Repeat sodium level this afternoon. Potential discharge this afternoon.
[2019-09-26] MEDS: LORazepam 0.5 MG TAB PO SCH (11:44)
--- NOTE | 2019-09-26 15:03 | P.DS ---
Providers Date of admission: 09/22/19 00:33 Expected date of discharge: 09/26/19 Attending physician: Yanick Glez Consults: 09/22/19 00:32 Consult Physician Routine Consulting Provider: Carlos Addison Consult Reason/Comments: gib Do you want consulting provider notified?: Yes 09/22/19 09:39 Consult Physician Routine Consulting Provider: Raza Mcclure Consult Reason/Comments: von Willebrand disease Do you want consulting provider notified?: Yes 09/24/19 10:36 Consult Physician Stat Consulting Provider: Derrell Bermudez Consult Reason/Comments: hyponatremia Do you want consulting provider notified?: Yes Primary care physician: [facility] Course: Final diagnosis Vomiting, diarrhea with possible upper gastrointestinal bleeding, status post EGD showing 2 cm clean-based antral ulcer with no active bleeding Short segment of Mueller's esophagus and low-grade reflux esophagitis Small hiatal hernia an EGD Covid 19 ruled out Hyponatremia, improved Hypokalemia, resolved Increased WBC, present on admission Anemia, normocytic anemia of chronic disease CRP History of asthma, COPD, not in acute exacerbation gastroesophageal reflux disease Hypertension Degenerative seizure disorder history of takotsubo syndrome History of von Willebrand's disease History of anxiety, depression Continued ongoing nicotine dependence History of THC Discharge disposition Patient is being discharged in a stable condition with guarded prognosis to home and will follow-up with GI along with primary care provider in hematology in the outpatient setting. Patient will continue on Protonix daily. Total time taken is 35 minutes. History of present illness This is a 59-year-old female who was recently admitted with vomiting and diarrhea and was found to have GI bleeding and was being closely monitored. Her went EGD showing a 2 cm clean-based antral ulcer with no active bleeding noted. Patient has not had any bleeding noted since procedure. Patient was also found to have a short segment of Mueller's esophagitis along with low-grade reflux esophagitis and patient will be continued on Protonix daily in the outpatient setting. Patient does have a history of von Willebrand's disease and will be following up with hematology in the next few weeks to reestablish. Patient was tested for Covid 19 and was negative. Prior to the EGD procedure patient was given a dose of DDAVP and was maintained on IV fluids and had some hyponatremia that has resolved. Nephrology was following. Patient was given a dose of Samsa along with sodium chloride tablets and fluid restrictions and sodium went from 123 up to 134. Patient's repeat sodium today is 133 and patient will be discharged today. Patient instructed to closely monitor her blood pressure and follow-up with her primary care provider sooner as she normally takes metoprolol 100 mg at bed for hypertension. Patient instructed to hold the metoprolol if systolic is less than 90 and notify her primary care provider. Patient instructed to keep a diary of blood pressure readings for primary care follow- up. Currently no reports of chest pain, shortness of breath, or palpitations. Patient Is afebrile. No reports of nausea or vomiting and patient is tolerating diet. Patient is having bowel movements and denies any blood noted in the blood bowel movement. Patient will be discharged this afternoon. On exam vital signs are stable. Temp is 97.9F, pulse is 62, respirations are 18, blood pressure is 114/73, oxygen saturation is 97% on room air. Cardio S1, S2 are present. Respiratory system shows clear to auscultation. Abdomen is soft, thin, and nontender. Nervous system shows no focal deficits. Please refer to medication reconciliation sheet for a list of medications. Patient Condition at Discharge: Good Plan - Discharge Summary Discharge Rx Participant: No New Discharge Prescriptions: New HYDROcodone/APAP 5-325MG [[place] 5-325] 1 each PO Q6HR PRN #12 tab PRN Reason: Pain Pantoprazole Sodium [Protonix] 40 mg PO DAILY #30 tablet.dr Continue Albuterol Inhaler (Bulk) [Ventolin Hfa Inhaler (Bulk)] 2 puff INHALATION RT- Q4H PRN PRN Reason: Shortness Of Breath Alendronate Sodium [Fosamax] 70 mg PO LAM Ergocalciferol (Vitamin D2) [Drisdol] 50,000 unit PO TH Fish Oil/Dha/Epa [Fish Oil 1,200 mg Fish Oil] 1 cap PO DAILY Fluticasone/Salmeterol [Fluticasone-Salmeterol 232-14] 1 puff INHALATION RT- BID LORazepam [Ativan] 0.5 mg PO DAILY Magnesium Oxide [Mag-Ox] 400 mg PO DAILY Metoprolol Succinate [Toprol XL] 100 mg PO DAILY@2200 Sertraline [Zoloft] 50 mg PO DAILY@2200 Discontinued Meloxicam 15 mg PO HS Nitrofurantoin Monohyd/M-Cryst [Macrobid] 100 mg PO Q12HR Discharge Medication List Albuterol Inhaler (Bulk) [Ventolin Hfa Inhaler (Bulk)] 2 puff INHALATION RT-Q4H PRN 07/28/16 [History] Alendronate Sodium [Fosamax] 70 mg PO LAM 09/21/19 [History] Ergocalciferol (Vitamin D2) [Drisdol] 50,000 unit PO TH 09/21/19 [History] Fish Oil/Dha/Epa [Fish Oil 1,200 mg Fish Oil] 1 cap PO DAILY 09/21/19 [History] Fluticasone/Salmeterol [Fluticasone-Salmeterol 232-14] 1 puff INHALATION RT-BID 09/21/19 [History] LORazepam [Ativan] 0.5 mg PO DAILY 09/21/19 [History] Magnesium Oxide [Mag-Ox] 400 mg PO DAILY 09/21/19 [History] Metoprolol Succinate [Toprol XL] 100 mg PO DAILY@219909/21/19 [History] Sertraline [Zoloft] 50 mg PO DAILY@219909/21/19 [History] HYDROcodone/APAP 5-325MG [[place] 5-325] 1 each PO Q6HR PRN #12 tab 09/26/19 [Rx] Pantoprazole Sodium [Protonix] 40 mg PO DAILY #30 tablet. 09/26/19 [Rx] Follow up Appointment(s)/Referral(s): Raza Mcclure MD [STAFF PHYSICIAN] - 6 Weeks (Office closed. Please call Sunday for your follow-up. Thank you.) Sharon Engle MD [STAFF PHYSICIAN] - 2 Weeks (Office closed. Please call office Sunday for your follow-up. Thank you.) Michoacano Alcantar DO [Primary Care Provider] - 09/30/19 3:00 pm (Telehealth call for this appointment.) Patient Instructions/Handouts: Gastrointestinal Bleeding (DC), Hyponatremia (DC) Activity/Diet/Wound Care/Special Instructions: Manager Human Resources follow up Activity Limited until follow-up Continue current diet Repeat labs in 2-3 days Follow-up with primary care provider in the outpatient setting Discharge Disposition: HOME SELF-CARE
[2019-09-26 15:24] VITALS: BP 94/60; PULSE 86; TEMP 98.3
--- NOTE | 2019-09-26 15:30 | PN ---
PROGRESS NOTE DATE OF SERVICE: 09/26/2019 Patient is a 59-year-old pleasant white female admitted to hospital with acute upper GI bleed. EGD done 4 days ago, did show evidence of 2 cm antral ulcer. The patient subsequently developed hypokalemia and Nephrology have been consulted. Her serum sodium was 118 yesterday and today it went up to 134. Overall, she is feeling well. She denies any complaints, still has severe back pain. PHYSICAL EXAMINATION: Blood pressure 114/70, pulse 62, temperature 98.7. HEENT: Examination unremarkable. Conjunctivae are pink. Sclerae nonicteric. Oral cavity no lesions. NECK: No JVD or lymph node enlargement. CHEST: Clear to auscultation. HEART: Regular rate and rhythm. ABDOMEN: Soft. Bowel sounds are positive. No organomegaly. EXTREMITIES: No pedal edema. SKIN: No rashes. NEURO: Alert and oriented x3. No focal deficits. LABS: Sodium is 134, BUN and creatinine are normal. IMPRESSION: 1. Acute upper gastrointestinal bleed, status post EGD 4 days ago that showed a 2 cm antral ulcer with no further bleeding. Hemoglobin stable. Last one done 2 days ago was 10.8 g/dL. Remains on Protonix 40 mg twice daily, doing well and avoiding NSAIDs. 2. History of Willebrand's disease. 3. Hypokalemia, which is resolving. RECOMMENDATIONS: 1. Continue Protonix 40 mg twice daily. 2. If the repeat sodium is normal, she can be discharged home today. 3. Follow up in the office in 2 weeks. 4. Avoid NSAIDs and will follow with you closely. Thank you for this consultation. MMODL / IJN: [id number] /
--- NOTE | 2019-09-26 16:40 | P.PN ---
Subjective Progress Note Date: 09/26/19 Principal diagnosis: VW She is feeling good today hoping to go home Objective - Vital Signs Vital signs: Vital Signs Temp 98.3 F 09/26/19 15:00 Pulse 86 09/26/19 15:00 Resp 18 09/26/19 15:00 BP 94/60 09/26/19 15:00 Pulse Ox 97 09/26/19 15:00 Intake & Output 09/25/19 09/26/19 09/26/19 18:59 06:59 18:59 Other: Voiding Method Toilet Toilet # Voids 1 2 2 - Exam - Constitutional General appearance: Present: average body habitus, cooperative, no acute distress - EENT Eyes: Present: anicteric sclerae, EOMI, dentition normal ENT: Present: hearing grossly normal - Respiratory Respiratory: bilateral: CTA, diminished - Cardiovascular Heart sounds: normal: S1, S2 - Peripheral edema leg Peripheral Edema: bilateral: None - Gastrointestinal General gastrointestinal: Present: normal bowel sounds, soft - Integumentary Integumentary: Present: normal, normal turgor - Neurologic Neurologic: Present: CNII-XII intact - Musculoskeletal Musculoskeletal: Present: strength equal bilaterally - Psychiatric Psychiatric: Present: A&O x's 3, appropriate affect, intact judgment & insight - Labs CBC & Chem 7: 09/25/19 07:39 09/26/19 13:07 Labs: Abnormal Lab Results - Last 24 Hours (Table) 09/25/19 09/26/19 09/26/19 Range/Units 17:49 08:01 13:07 Sodium 123 L 134 L 133 L (137-145) mmol/L Chloride 97 L (98-107) mmol/L Assessment and Plan Plan: Von Willebrands disease Patient doing well postoperatively. Hgb recovering, WNL today. Anemia work up reviewed. B12 low normal, pending MMA before choosing to supplement. Iron studies are low normal. Will recheck at office visit and consider parenteral iron as pt does have SE of oral pre parations. She was worked up 2011 for von Willebrand's disease, type II. Follow up with Dr. 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 Patient verbalized understanding Physician Attest: I have completed the full history and physical, and agree with above dictation, dictated as a scribe
[2019-09-28] MEDS ORDERED: NON FORMULARY DRUG (Alendronate Sodium [Fosamax] 70 MG) PO SCH (12:02)
== END 2019-09-26 16:10 | disposition home or self-care (01) | DRG 381 ==
LOC: EC 21:37 → 5NMEDONC 09-22 00:33 → 6NMEDSUR 09-22 15:18 → 4SSUR 09-23 17:35
PROVIDERS: ADMIT Hospitalist; ATTEND Hospitalist
PROC: 0DB58ZX Excision of Esophagus, Via Natural or Artificial Opening Endoscopic, Diagnostic (ICD-10-PCS; principal; 2019-09-23 08:30)
PROC: 0DB78ZX Excision of Stomach, Pylorus, Via Natural or Artificial Opening Endoscopic, Diagnostic (ICD-10-PCS; principal; 2019-09-23 08:30)
DX: K22.11 Ulcer of esophagus with bleeding (principal); D68.0 Von Willebrand disease; E87.1 Hypo-osmolality and hyponatremia; I51.81 Takotsubo syndrome; K25.4 Chronic or unspecified gastric ulcer with hemorrhage; K21.0 Gastro-esophageal reflux disease with esophagitis; K29.70 Gastritis, unspecified, without bleeding; K44.9 Diaphragmatic hernia without obstruction or gangrene; D63.8 Anemia in other chronic diseases classified elsewhere; E87.6 Hypokalemia; F17.210 Nicotine dependence, cigarettes, uncomplicated; G40.909 Epilepsy, unspecified, not intractable, without status epilepticus; I10 Essential (primary) hypertension; J44.9 Chronic obstructive pulmonary disease, unspecified; M19.90 Unspecified osteoarthritis, unspecified site; S93.409D Sprain of unspecified ligament of unspecified ankle, subsequent encounter; Z79.83 Long term (current) use of bisphosphonates; Z20.828 Contact with and (suspected) exposure to other viral communicable diseases; Z79.899 Other long term (current) drug therapy; Z82.49 Family history of ischemic heart disease and other diseases of the circulatory system; Z98.42 Cataract extraction status, left eye; Z98.41 Cataract extraction status, right eye; Z96.1 Presence of intraocular lens; Z87.440 Personal history of urinary (tract) infections; Z88.8 Allergy status to other drugs, medicaments and biological substances; F41.9 Anxiety disorder, unspecified; F32.9 Major depressive disorder, single episode, unspecified
CPT/HCPCS: 36415; 43239; 74177; 80048; 80053; 81003; 82533; 82607; 82728; 82747; 83540; 83550; 83690; 83735; 83921; 83930; 83935; 84295; 84300; 84443; 84484; 84550; 85025; 85027; 85045; 85379; 85610; 85652; 85730; 86140; 86850; 86900; 86901; 87502; 87635; 88305; 88312; 88313; 96361; 96374; 96375; 99285

== ENCOUNTER 2020-01-23 11:10 | Day surgery (SDC) | payer OTHER ==
[2020-01-22 09:11] VITALS: BMI 22.2
[~2020-01-23 11:10] MED LIST: LACTATED RINGERS 1,000 ML IV SCH; LIDOCAINE 1% (10MG/ML) FOR IV START INTRADERMA PRN
[2020-01-23 11:40] VITALS: RESP 16; TEMP 97.9
[2020-01-23] MEDS ORDERED: PROPOFOL 10 MG/ML 20 ML VIAL IV ONE (12:10)
[2020-01-23] MEDS ORDERED: LIDOCAINE 1% INJ 10MG/ML (20 ML MDV) ONE (12:10)
--- NOTE | 2020-01-23 12:27 | P.PCN ---
Date of Procedure: 01/23/20 Procedure(s) Performed: BRIEF HISTORY: Patient is a 59-year-old, pleasant, white female scheduled for an upper endoscopy as a part of follow-up of gastric ulcer. She was admitted with an acute upper GI bleed in September 2019 an upper endoscopy revealed a 2 cm antral ulcer. She remains on Protonix 40 mg daily.. PROCEDURE PERFORMED: Esophagogastroduodenoscopy. PREOPERATIVE DIAGNOSIS: Follow-up Antral ulcer. IV sedation per anesthesia. PROCEDURE: After informed consent was obtained, the patient was brought into the endoscopy unit. IV sedation was administered by Anesthesia under continuous monitoring. Initially the Olympus GIF-140 video endoscope was inserted into the mouth. Esophagus intubated without any difficulty. It was gradually advanced into the stomach and duodenum and carefully examined. The bulb and the second part of the duodenum appeared normal. The scope at this time was withdrawn to the stomach, adequately insufflated with air, and upon careful examination, mucosa of the antrum and some gastritis seen however the previously noted antral ulcer has completely healed., The body, cardia and the fundus appeared normal. The scope was then withdrawn into the esophagus. The GE junction was located at 39 cm from the incisors. The esophagus appeared normal. There were no erosions or ulcerations seen and the patient tolerated the procedure well. IMPRESSION: 1. Previously noted antral ulcer has completely healed 2. Antral gastritis. RECOMMENDATIONS: The findings of this examination were discussed with the patient as well as her family. She was advised to avoid NSAIDs. She will continue with Protonix as needed for GERD symptoms.
[2020-01-23 12:45] VITALS: BP 143/89; PULSE 72
== END 2020-01-23 12:59 | disposition home or self-care (01) ==
LOC: ORWHC2ENDO 11:10
PROVIDERS: ATTEND Internal Medicine Gastroenterology
DX: K29.70 Gastritis, unspecified, without bleeding (principal); K21.9 Gastro-esophageal reflux disease without esophagitis; D68.0 Von Willebrand disease; K08.409 Partial loss of teeth, unspecified cause, unspecified class; K08.89 Other specified disorders of teeth and supporting structures; I10 Essential (primary) hypertension; J44.9 Chronic obstructive pulmonary disease, unspecified; I51.81 Takotsubo syndrome; F17.210 Nicotine dependence, cigarettes, uncomplicated; Z87.11 Personal history of peptic ulcer disease; Z79.899 Other long term (current) drug therapy; Z88.8 Allergy status to other drugs, medicaments and biological substances; Z86.69 Personal history of other diseases of the nervous system and sense organs; Z98.890 Other specified postprocedural states; Z90.89 Acquired absence of other organs; Z91.89 Other specified personal risk factors, not elsewhere classified; Z87.898 Personal history of other specified conditions
CPT/HCPCS: 43235; J2001; J2704

== ENCOUNTER → 2020-02-27 | Outpatient (CLI) | payer OTHER ==
--- NOTE | 2020-02-28 13:51 | MR ---
MR right hip HISTORY: M 25.551, right hip pain Multiplanar multisequence imaging obtained through the pelvis with small [id number] images through the right hip. Correlation to CT scan dated 09/21/2019 There is no sizable joint effusion. Bone marrow signal is maintained. Acetabular labrum is thought to be intact. No evident tendon tear. Sacroiliac joints are intact. Muscle signal is maintained. No fra cture or dislocation. No abnormal fluid collection noted within the pelvis. Mild degenerative disc changes are noted at the lower lumbar spine. Question some heterogeneous signal within the uterus, difficult to exclude fibro id. IMPRESSION: No significant abnormality evident within the right hip. Additional findings above.
== END | disposition home or self-care (01) ==
LOC: RADMRIMAIN 18:36
PROVIDERS: ATTEND Family Medicine
DX: M25.551 Pain in right hip (principal)

== ENCOUNTER → 2020-03-10 | Outpatient (CLI) | payer OTHER ==
--- NOTE | 2020-03-10 14:28 | US ---
EXAMINATION TYPE: US pelvis complete transvag DATE OF EXAM: 03/10/2020 COMPARISON: MRI right hip 02/27/2020 CLINICAL HISTORY: R93.41 abnormal findings, D25.9 leiomyoma of uterus. Patient states MRI showed poss ible uterine fibroid. TECHNIQUE: Transvaginal (TV) and Transabdominal (TA) . Transabdominal sonographic images of the pel vis were acquired. 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 Uterus: Anteverted Heterogenous. Increased peripheral vascularity visualized. No prominent le sions seen at time of study. 2. Endometrium: wnl 3. Right Ovary: Obscured by overlying bowel gas 4. Left Ovary: Obscured by overlying bowel gas 5. Bilateral Adnexa: Peristalsing fluid filled loops of bowel visualized 6. Posterior cul-de-sac: no free fluid IMPRESSION: 1. Uterus is heterogeneous which is a nonspecific finding. There is a vague area of reduced echogenic ity posteriorly. Recommend dedicated MRI of the pelvis 2. Increased peripheral vascularity could be associated with pelvic varices.
== END | disposition home or self-care (01) ==
LOC: RADUSWWP 13:32
PROVIDERS: ATTEND Family Medicine
DX: R93.41 Abnormal radiologic findings on diagnostic imaging of renal pelvis, ureter, or bladder (principal); D25.9 Leiomyoma of uterus, unspecified
CPT/HCPCS: 76830; 76856

== ENCOUNTER → 2020-05-05 | Outpatient (CLI) | payer OTHER ==
--- NOTE | 2020-05-05 13:39 | BD ---
EXAMINATION TYPE: Axial Bone Density DATE OF EXAM: 05/05/2020 COMPARISON: NONE CLINICAL HISTORY: Height: 65.5 Weight: 131.3 FRAX RISK QUESTIONS: Alcohol (3 or more units per day): no Family History (Parent hip fracture): yes Glucocorticoids (More than 3mos): (Ex: prednisone, prednisolone, methylprednisolone, dexamethasone, and hydrocortisone). History of Fracture in Adulthood: no Secondary Osteoporosis: 1. Type 1 Diabetes: no 2. Hyperthyroidism: no 3. Menopause before 45: no 4. Malnutrition: no 5. Chronic liver disease: no Rheumatoid Arthritis: yes Current Tobacco Use: yes RISK FACTORS HISTORY OF: History of Wrist Fracture: right wrist x2 When: as a child Surgery to Spine/Hip(right/left)/Wrist (right/left): no Family History of Osteoporosis: yes Active: yes Diet low in dairy products/other sources of calcium: yes Postmenopausal woman: age 52 Lost more than 2 inches in height since high school: no MEDICATIONS: metoprolol, cholesterol meds, inhalers Additional History: EXAM MEASUREMENTS: Bone mineral densitometry was performed using the Integrated Micro-[employer] System. Bone mineral density as measured about the Lumbar spine is: ----- L1-L4(G/cm2): 0.921 T Score Values are as follows: ----- L2: -2.6 ----- L3: -2.0 ----- L4: -2.0 ----- L1-L4: -2.2 Bone mineral density has: decreased -4.3 % since study of: 12.19.2017 Bone mineral density about the R hip (g/cm2): 0.668 Bone mineral density about the L hip (g/cm2): 0.677 T Score values are as follows: -----R Neck: -2.7 -----L Neck: -2.6 -----R Total: -3.4 -----L Total: -3.0 Bone mineral density has: decreased -0.3 % since study of: 12.19.2017 IMPRESSION: Osteoporosis of the bilateral hips and osteopenia of the lumbar spine. NOTE: T-SCORE=SD OF THE YOUNG ADULT MEAN.
--- NOTE | 2020-05-11 11:41 | MM ---
Reason for exam: screening (asymptomatic). Last mammogram was performed 1 year and 1 month ago. History: Patient is postmenopausal. Benign excisional biopsy of the right breast, 2008. Physical Findings: A clinical breast exam by your physician is recommended on an annual basis and results should be correlated with mammographic findings. MG Screening Mammo w CAD Bilateral CC, MLO, and XCCL view(s) were taken. Prior study comparison: March 24, 2019, bilateral MG screening mammo w CAD. August 23, 2017, bilateral MG 3d screening mammo w/cad. The breast tissue is heterogeneously dense. This may lower the sensitivity of mammography. Finding: There are regional, fine calcifications in the upper quadrant, middle position of the right breast. No significant changes in finding since March 24, 2019 and August 23, 2017. ASSESSMENT: Benign, BI-RAD 2 RECOMMENDATION: Routine screening mammogram of both breasts in 1 year.
== END | disposition home or self-care (01) ==
LOC: RADBDWWP 12:47
PROVIDERS: ATTEND Family Medicine
DX: Z12.31 Encounter for screening mammogram for malignant neoplasm of breast (principal); M81.0 Age-related osteoporosis without current pathological fracture; M85.88 Other specified disorders of bone density and structure, other site
CPT/HCPCS: 77067; 77080

== ENCOUNTER 2021-03-27 15:06 | Emergency (ER) | payer OTHER ==
[2021-03-27 15:42] VITALS: TEMP 97.1
[2021-03-27] MEDS ORDERED: KETOROLAC 15 MG/ML 1 ML VIAL IVP STA (16:19)
[2021-03-27] MEDS ORDERED: DIAZEPAM 5 MG/ML 2 ML INJ IVP STA (16:19)
--- NOTE | 2021-03-27 16:21 | ED ---
General Adult HPI - General Chief complaint: Back Pain/Injury Stated complaint: back pain Time Seen by Provider: 03/27/21 16:04 Source: patient, EMS Mode of arrival: EMS Limitations: no limitations - History of Present Illness Initial comments: 61-year-old female with a complicated past medical history presents to the emergency room for a chief complaint of low back pain. Patient states she was kneeling down pulling weeds and felt a pop in her back and pain. Patient states she was with pain she had to crawl to the house. Patient states any type of movement worsens the pain. Patient denies bladder or bowel changes, saddle anesthesia, weakness of the legs. Patient states she has had pain in the past but this feels worse than normal. Patient takes Tylenol and smokes marijuana for her previous back pain.Patient has no other complaints at this time including shortness of breath, chest pain, abdominal pain, nausea or vomiting, headache, or visual changes. - Related Data Home Medications Medication Instructions Recorded Confirmed Albuterol Inhaler (Mhu) [Ventolin 2 puff INHALATION RT-Q4H PRN 07/28/16 01/23/20 Hfa Inhaler (Mhu)] Ergocalciferol (Vitamin D2) 50,000 unit PO TH 09/21/19 01/23/20 [Drisdol (50,000 Iu)] Metoprolol Tartrate [Lopressor] 50 mg PO QAM 01/22/20 01/23/20 Previous Rx's Medication Instructions Recorded Pantoprazole Sodium [Protonix] 40 mg PO DAILY #30 tablet.dr 09/26/19 Allergies Allergy/AdvReac Type Severity Reaction Status Date / Time steroids AdvReac Unknown Uncoded 01/23/20 11:42 Review of Systems ROS Statement: Those systems with pertinent positive or pertinent negative responses have been documented in the HPI. ROS Other: All systems not noted in ROS Statement are negative. Past Medical History Past Medical History: Asthma, Blood Disorder, Chest Pain / Angina, COPD, GERD/Reflux, GI Bleed, Hypertension, Osteoarthritis (OA), Seizure Disorder, Skin Disorder, Thyroid Disorder Additional Past Medical History / Comment(s): TAKATSUBO SYNDROME (broken heart syndrome). Has had only one seizure in 2012 and takes no medications for seizures, von willebrand syndrome, states had issue with low sodium from DDAVP given for von willebrand during last hospital stay. Hx of bleeding ulcers, hypothyroidism History of Any Multi-Drug Resistant Organisms: None Reported Past Surgical History: Heart Catheterization, Tonsillectomy Additional Past Surgical History / Comment(s): RIGHT breast LUMPECTOMY, bilateral cataracts with lens implants, Teratoma removal from neck when an infant, EGD Past Anesthesia/Blood Transfusion Reactions: Previous Problems w/ Anesthesia, Motion Sickness Additional Past Anesthesia/Blood Transfusion Reaction / Comment(s): Trouble waking up from anesthesia pt thinks it was caused by propofol Past Psychological History: Anxiety, Depression Smoking Status: Current every day smoker Past Alcohol Use History: Rare Past Drug Use History: Marijuana - Past Family History Mother Family Medical History: Hypertension General Exam Limitations: no limitations General appearance: alert, in no apparent distress Head exam: Present: atraumatic Eye exam: Present: normal appearance, PERRL, EOMI. Absent: scleral icterus, conjunctival injection ENT exam: Present: normal exam, mucous membranes moist Neck exam: Present: normal inspection, full ROM. Absent: tenderness Respiratory exam: Present: normal lung sounds bilaterally. Absent: respiratory distress, wheezes Cardiovascular Exam: Present: regular rate, normal rhythm, normal heart sounds GI/Abdominal exam: Present: soft, normal bowel sounds. Absent: distended, tenderness Extremities exam: Present: normal capillary refill (cap refill < 2 seconds, dp pulse 2+ BLE) Back exam: Present: vertebral tenderness (lumbar tenderness). Absent: CVA tenderness (R), CVA tenderness (L) Course Vital Signs 03/27/21 15:36 Temperature 97.1 F L Pulse Rate 72 Respiratory 18 Rate Blood Pressure 147/105 O2 Sat by Pulse 98 Oximetry Medical Decision Making - Medical Decision Making Vitals are stable. Patient is well-appearing. DP pulse 2+ in bilateral lower extremities. Strength 5 out of 5. No red flag symptoms. CT lumbar spine shows acute compression fracture of L3 15%. At this time patient is stable for outpatient follow-up with a TLSO brace and orthopedic referral. Tylenol 3. Discussed return parameters. She will return here for any worsening symptoms. Again no neurologic deficits in the legs at this time with strength 5 out of 5 and sensation intact. Disposition Clinical Impression: Compression fracture of L3 vertebra Disposition: HOME SELF-CARE Condition: Good Instructions (If sedation given, give patient instructions): Vertebral Compression Fracture (ED) Additional Instructions: Please take Tylenol 3 for pain. Use brace until you see orthopedics. Return to the emergency room for any worsening symptoms such as bladder or bowel changes, numbness in her groin or buttock, weakness of the legs, or fevers. Is patient prescribed a controlled substance at d/c from ED?: No Referrals: Michoacano Alcantar DO [Primary Care Provider] - 1-2 days Time of Disposition: 18:07
--- NOTE | 2021-03-27 16:54 | CT ---
EXAMINATION TYPE: CT lumbar spine wo con DATE OF EXAM: 03/27/2021 COMPARISON: 09/21/2019 HISTORY: Back pain CT DLP: 670.2 mGycm Automated exposure control for dose reduction was used. Images obtained from T12 to S3 vertebra without contrast. The vertebra have normal alignment. There is depression of the superior endplate of L3 vertebra 15% t hat appears acute. The facet joints are intact. Posterior elements are intact. There is no paraspinal mass. Sacroiliac joints are intact. Abdominal aorta is atheromatous. I see no focal bone destruction . IMPRESSION: Acute compression fracture of L3.
[2021-03-27] MEDS ORDERED: ACET/COD 300 MG/30 MG STARTER PACK 6 TAB BTL PO STA (18:08)
[2021-03-27 18:41] VITALS: BP 159/104; PULSE 65; RESP 16
== END 2021-03-27 18:20 | disposition home or self-care (01) ==
LOC: EC 15:06
DX: S32.030A Wedge compression fracture of third lumbar vertebra, initial encounter for closed fracture (principal); J44.9 Chronic obstructive pulmonary disease, unspecified; I10 Essential (primary) hypertension; M19.90 Unspecified osteoarthritis, unspecified site; F17.200 Nicotine dependence, unspecified, uncomplicated; Z88.8 Allergy status to other drugs, medicaments and biological substances; Z79.899 Other long term (current) drug therapy; X50.9XXA Other and unspecified overexertion or strenuous movements or postures, initial encounter; Y92.89 Other specified places as the place of occurrence of the external cause
CPT/HCPCS: 99284 ×2; 96374 ×2; 96375 ×2; 72131; J3360; J1885

== ENCOUNTER → 2022-10-20 | Outpatient (CLI) | payer OTHER ==
--- NOTE | 2022-10-20 10:13 | XR ---
EXAMINATION TYPE: XR toes RT DATE OF EXAM: 10/20/2022 COMPARISON: NONE HISTORY: Pain TECHNIQUE: Three views are submitted. FINDINGS: The osseous structures are intact. Sclerosis involving the distal phalanx first digit. There is a non union fracture involving the distal margin proximal phalanx second digit. Diffuse osteopenia.. Join t spaces are preserved. IMPRESSION: 1. There is a mildly displaced fracture involving the distal margin proximal phalanx second digit
--- NOTE | 2022-10-20 10:14 | XR ---
EXAMINATION TYPE: XR ankle complete RT DATE OF EXAM: 10/20/2022 COMPARISON: NONE HISTORY: pain FINDINGS: Three views of the ankle demonstrate the ankle mortise to be intact and symmetric. The joint spaces are preserved. The osseous structures are intact. IMPRESSION: 1. No definite acute fracture or dislocation, if symptoms persist follow-up study in 7 to 10 days wou ld be suggested.
== END | disposition home or self-care (01) ==
LOC: RADXRYALE 09:30
PROVIDERS: ATTEND Physician Assistant
DX: S92.511A Displaced fracture of proximal phalanx of right lesser toe(s), initial encounter for closed fracture (principal); X58.XXXA Exposure to other specified factors, initial encounter

== ENCOUNTER 2023-02-18 02:24 | Emergency (ER) | payer OTHER ==
[2023-02-18 02:30] VITALS: TEMP 98.3
[2023-02-18] MEDS ORDERED: methylPREDNISolone SOD SUCCI 125 MG/2 ML VIAL IV STA (03:29)
[2023-02-18] MEDS ORDERED: IPRATROPIUM-ALBUTEROL 3 ML NEB INHALATION STA (03:32)
[2023-02-18 04:37] LABS: Basophils % (A) 0 %; Eosinophils # (A) 0.6 k/uL (0-0.7); Eosinophils % (A) 8 %; HCT 41.8 % (34.0-46.0); Lymphocytes # (A) 1.9 k/uL (1.0-4.8); Lymphocytes % (A) 23 %; MCHC 33.4 g/dL (31.0-37.0); MCV 98.8 fL (80.0-100.0); Mean Platelet Volume 8.7; Monocytes # (A) 0.6 k/uL (0-1.0); Monocytes % (A) 7 %; Neutrophils % (A) 61 %; Platelet Count 296 k/uL (150-450); RBC 4.23 m/uL (3.80-5.40); RDW 11.8 % (11.5-15.5); WBC 8.2 k/uL (3.8-10.6)
[2023-02-18 04:42] LABS: INR 0.9 (<1.2); Partial Thromboplastin Time 25.8 sec (22.0-30.0); Prothrombin Time 9.8 sec (9.0-12.0)
[2023-02-18 04:54] LABS: ALT 20 U/L (4-34); AST 32 U/L (14-36); African American GFR (CKD) >90 (>60 ml/min/1.73 sqM); Albumin 4.2 g/dL (3.5-5.0); Alkaline Phosphatase 96 U/L (38-126); Anion Gap 9 mmol/L; Blood Urea Nitrogen 14 mg/dL (7-17); Calcium 9.4 mg/dL (8.4-10.2); Carbon Dioxide 20 mmol/L (22-30); Chloride 101 mmol/L (98-107); Glucose 103 mg/dL (74-99); Non-African American GFR(CKD) >90 (>60 ml/min/1.73 sqM); Potassium 4.5 mmol/L (3.5-5.1); Sodium 130 mmol/L (137-145); Total Bilirubin 0.4 mg/dL (0.2-1.3); Total Protein 6.9 g/dL (6.3-8.2)
[2023-02-18] MEDS ORDERED: DOXYCYCLINE 100 MG CAP PO STA (05:34)
--- NOTE | 2023-02-18 05:40 | ED ---
SOB HPI - General Chief Complaint: Shortness of Breath Stated Complaint: Shortness of Breath Time Seen by Provider: 02/18/23 02:35 Source: EMS Limitations: no limitations - History of Present Illness Initial Comments: 62-year-old female with past history of COPD who presents to the emergency department reporting shortness of breath and states that she has been more short of breath over the past week. She has been using her inhaler without any improvement in her symptoms. She denies any recent antibiotic or steroid use. No sick contacts with similar symptoms. Admits to nonproductive cough. No fevers. No nausea or vomiting. Denies any chest pain. No history of DVT or PE. She is not on any anticoagulation. States that she has had worsening respiratory issues after she had Covid. Denies any cardiac disease. No other alleviating, precipitating or modifying factors - Related Data Home Medications Medication Instructions Recorded Confirmed Albuterol Inhaler [Ventolin Hfa 2 puff INHALATION RT-Q4H PRN 07/28/16 01/23/20 Inhaler] Ergocalciferol (Vitamin D2) 50,000 unit PO TH 09/21/19 01/23/20 [Drisdol (50,000 Iu)] Metoprolol Tartrate [Lopressor] 50 mg PO QAM 01/22/20 01/23/20 Previous Rx's Medication Instructions Recorded Pantoprazole Sodium [Protonix] 40 mg PO DAILY #30 tablet.dr 09/26/19 Doxycycline Hyclate 100 mg PO BID 7 Days #14 tab 02/18/23 methylPREDNISolone Dose Pack 4 mg PO DIRECTED #21 tab 02/18/23 [Medrol Dose Pack] Allergies Allergy/AdvReac Type Severity Reaction Status Date / Time steroids AdvReac Unknown Uncoded 10/19/21 14:12 Review of Systems ROS Statement: Those systems with pertinent positive or pertinent negative responses have been documented in the HPI. ROS Other: All systems not noted in ROS Statement are negative. Past Medical History Past Medical History: Asthma, Blood Disorder, Chest Pain / Angina, COPD, GERD/Reflux, GI Bleed, Hypertension, Osteoarthritis (OA), Seizure Disorder, Skin Disorder, Thyroid Disorder Additional Past Medical History / Comment(s): TAKATSUBO SYNDROME (broken heart syndrome). Has had only one seizure in 2013 and takes no medications for seizures, von willebrand syndrome, states had issue with low sodium from DDAVP given for von willebrand during last hospital stay. Hx of bleeding ulcers, hypothyroidism History of Any Multi-Drug Resistant Organisms: None Reported Past Surgical History: Heart Catheterization, Tonsillectomy Additional Past Surgical History / Comment(s): RIGHT breast LUMPECTOMY, bilateral cataracts with lens implants, Teratoma removal from neck when an , EGD Past Anesthesia/Blood Transfusion Reactions: Previous Problems w/ Anesthesia, Motion Sickness Additional Past Anesthesia/Blood Transfusion Reaction / Comment(s): Trouble waking up from anesthesia pt thinks it was caused by propofol Past Psychological History: Anxiety, Depression Smoking Status: Current every day smoker Past Alcohol Use History: Rare Past Drug Use History: Marijuana - Past Family History Mother Family Medical History: Hypertension General Exam Limitations: no limitations General appearance: alert, in no apparent distress Head exam: Present: atraumatic, normocephalic, normal inspection Eye exam: Present: normal appearance, PERRL, EOMI. Absent: scleral icterus, conjunctival injection, periorbital swelling ENT exam: Present: normal exam, mucous membranes moist Neck exam: Present: normal inspection. Absent: tenderness, meningismus, lymphadenopathy Respiratory exam: Present: decreased breath sounds. Absent: normal lung sounds bilaterally, respiratory distress, wheezes, rales, rhonchi, stridor Cardiovascular Exam: Present: regular rate, normal rhythm, normal heart sounds. Absent: systolic murmur, diastolic murmur, rubs, gallop, clicks GI/Abdominal exam: Present: soft, normal bowel sounds. Absent: distended, tenderness, guarding, rebound, rigid Extremities exam: Present: normal inspection, full ROM, normal capillary refill. Absent: tenderness, pedal edema, joint swelling, calf tenderness Back exam: Present: normal inspection Neurological exam: Present: alert, oriented X3, CN II-XII intact Psychiatric exam: Present: normal affect, normal mood Skin exam: Present: warm, dry, intact, normal color. Absent: rash Course Vital Signs 02/18/23 02/18/23 02/18/23 02:27 04:10 04:20 Temperature 98.3 F Pulse Rate 87 75 75 Respiratory 20 Rate Blood Pressure 148/101 O2 Sat by Pulse 96 Oximetry 02/18/23 05:00 Temperature Pulse Rate 81 Respiratory 16 Rate Blood Pressure 134/89 O2 Sat by Pulse 97 Oximetry Medical Decision Making - Medical Decision Making Was pt. sent in by a medical professional or institution ([facility], [facility], urgent care, hospital, or retirement...) When possible be specific @ -No Did you speak to anyone other than the patient for history (EMS, parent, family, police, friend...)? What history was obtained from this source @ -I spoke with EMS regarding history Did you review nursing and triage notes (agree or disagree)? Why? @ -I reviewed and agree with nursing and triage notes Were old charts reviewed (outside hosp., previous admission, EMS record, old EKG, old radiological studies, urgent care reports/EKG's, retirement records)? Report findings @ -No old charts were reviewed Differential Diagnosis (chest pain, altered mental status, abdominal pain women, abdominal pain men, vaginal bleeding, weakness, fever, dyspnea, syncope, headache, dizziness, GI bleed, back pain, seizure, CVA, palpatations, mental health, musculoskeletal)? @ -Differential Dyspnea: Coronary syndrome, arrhythmia, tamponade, asthma, COPD, pulmonary embolism, pneumonia, pneumothorax, pulmonary effusion, anaphylaxis, diabetic ketoacidosis, flailed chest, pulmonary contusion, diaphragmatic rupture, anemia, neuromuscular, this is not meant to be an all-inclusive list. EKG interpreted by me (3pts min.). @ -yes and demonstrates sinus rhythm with a rate of 83. HI interval 159. QRS 89. QTC 411. No acute ST segment elevations or depressions X-rays interpreted by me (1pt min.). @ -Yes and demonstrates in my opinion a small right basilar opacity CT interpreted by me (1pt min.). @ -None done U/S interpreted by me (1pt. min.). @ -None done What testing was considered but not performed or refused? (CT, X-rays, U/S, labs)? Why? @ -None What meds were considered but not given or refused? Why? @ -None Did you discuss the management of the patient with other professionals ( professionals i.e. [facility], [facility], lab, RT, psych nurse, social psychologist, can cutter, teacher, finance officer, adult protective caseworker)? Give summary @ -No Was smoking cessation discussed for >3mins.? @ -No Was critical care preformed (if so, how long)? @ -No Were there social determinants of health that impacted care today? How? (Homelessness, low income, unemployed, alcoholism, drug addiction, transpo rtation, low edu. Level, literacy, decrease access to med. care, usp, rehab)? @ -No Was there de-escalation of care discussed even if they declined (Discuss DNR or withdrawal of care, Hospice)? DNR status @ -No What co-morbidities impacted this encounter? (DM, HTN, Smoking, COPD, CAD, Cancer, CVA, ARF, Chemo, Hep., AIDS, mental health diagnosis, sleep apnea, morbid obesity)? @ -COPD Was patient admitted / discharged? Hospital course, mention meds given and route, prescriptions, significant lab abnormalities, going to OR and other pertinent info. @ -Upon arrival patient was placed into room 2. A thorough history and physical exam was performed. Patient does not have increased of breathing. She does have some diminished breath sounds. IV was established. Laboratory studies are conducted. Chest x-rays performed. She was given 125 of Solu- Medrol and a breathing treatment. Patient is reevaluated and resting comfortably in bed. I did discuss the diagnosis, differential treatment options. I feel that the patient should be started on antibiotics due to the opacity noted at the right base. She also be placed on a course of steroids. Instructed to use her inhaler every 4 hours. Instructed to follow up with the primary care doctor to 4 days and return for any new or worsening symptoms. Patient was agreeable plan she is discharged in stable condition Undiagnosed new problem with uncertain prognosis? @ -No Drug Therapy requiring intensive monitoring for toxicity (Heparin, Nitro, Insu shasha, Cardizem)? @ -No Were any procedures done? @ -No Diagnosis/symptom? @ -Acute respiratory insufficiency, acute COPD exacerbation, possible right basilar infiltrate Acute, or Chronic, or Acute on Chronic? @ -Acute Uncomplicated (without systemic symptoms) or Complicated (systemic symptoms)? @Complicated Side effects of treatment? @ -No Exacerbation, Progression, or Severe Exacerbation? @ -Yes Poses a threat to life or bodily function? How? (Chest pain, USA, MA, pneumonia, PE, COPD, DKA, ARF, appy, cholecystitis, CVA, Diverticulitis, Homicidal, Suicidal, threat to staff... and all critical care pts) @ -No - Lab Data Result diagrams: 02/18/23 02:37 02/18/23 02:37 Lab Results 02/18/23 02/18/23 02/18/23 Range/Units 02:37 02:37 02:37 WBC 8.2 (3.8-10.6) k/uL RBC 4.23 (3.80-5.40) m/uL Hgb 14.0 (11.4-16.0) gm/dL Hct 41.8 (34.0-46.0) % MCV 98.8 (80.0-100.0) fL MCH 33.0 (25.0-35.0) pg MCHC 33.4 (31.0-37.0) g/dL RDW 11.8 (11.5-15.5) % Plt Count 296 (150-450) k/uL MPV 8.7 Neutrophils % 61 % Lymphocytes % 23 % Monocytes % 7 % Eosinophils % 8 % Basophils % 0 % Neutrophils # 5.0 (1.3-7.7) k/uL Lymphocytes # 1.9 (1.0-4.8) k/uL Monocytes # 0.6 (0-1.0) k/uL Eosinophils # 0.6 (0-0.7) k/uL Basophils # 0.0 (0-0.2) k/uL PT 9.8 (9.0-12.0) sec INR 0.9 (<1.2) APTT 25.8 (22.0-30.0) sec Sodium 130 L (137-145) mmol/L Potassium 4.5 (3.5-5.1) mmol/L Chloride 101 (98-107) mmol/L Carbon Dioxide 20 L (22-30) mmol/L Anion Gap 9 mmol/L BUN 14 (7-17) mg/dL Creatinine 0.62 (0.52-1.04) mg/dL Est GFR (CKD-EPI)AfAm >90 (>60 ml/min/1.73 sqM) Est GFR (CKD-EPI)NonAf >90 (>60 ml/min/1.73 sqM) Glucose 103 H (74-99) mg/dL Plasma Lactic Acid Valentino (0.7-2.0) mmol/L Calcium 9.4 (8.4-10.2) mg/dL Total Bilirubin 0.4 (0.2-1.3) mg/dL AST 32 (14-36) U/L ALT 20 (4-34) U/L Alkaline Phosphatase 96 (38-126) U/L Troponin I (0.000-0.034) ng/mL Total Protein 6.9 (6.3-8.2) g/dL Albumin 4.2 (3.5-5.0) g/dL 02/18/23 02/18/23 Range/Units 02:37 02:37 WBC (3.8-10.6) k/uL RBC (3.80-5.40) m/uL Hgb (11.4-16.0) gm/dL Hct (34.0-46.0) % MCV (80.0-100.0) fL MCH (25.0-35.0) pg MCHC (31.0-37.0) g/dL RDW (11.5-15.5) % Plt Count (150-450) k/uL MPV Neutrophils % % Lymphocytes % % Monocytes % % Eosinophils % % Basophils % % Neutrophils # (1.3-7.7) k/uL Lymphocytes # (1.0-4.8) k/uL Monocytes # (0-1.0) k/uL Eosinophils # (0-0.7) k/uL Basophils # (0-0.2) k/uL PT (9.0-12.0) sec INR (<1.2) APTT (22.0-30.0) sec Sodium (137-145) mmol/L Potassium (3.5-5.1) mmol/L Chloride (98-107) mmol/L Carbon Dioxide (22-30) mmol/L Anion Gap mmol/L BUN (7-17) mg/dL Creatinine (0.52-1.04) mg/dL Est GFR (CKD-EPI)AfAm (>60 ml/min/1.73 sqM) Est GFR (CKD-EPI)NonAf (>60 ml/min/1.73 sqM) Glucose (74-99) mg/dL Plasma Lactic Acid Valentino 1.6 (0.7-2.0) mmol/L Calcium (8.4-10.2) mg/dL Total Bilirubin (0.2-1.3) mg/dL AST (14-36) U/L ALT (4-34) U/L Alkaline Phosphatase (38-126) U/L Troponin I <0.012 (0.000-0.034) ng/mL Total Protein (6.3-8.2) g/dL Albumin (3.5-5.0) g/dL Disposition Clinical Impression: COPD exacerbation, CAP (community acquired pneumonia), Hyponatremia Disposition: HOME SELF-CARE Condition: Stable Instructions (If sedation given, give patient instructions): COPD (Chronic Obstructive Pulmonary Disease) (ED) Additional Instructions: Please use your breathing treatments every 4 hours. Take the steroids and antibiotics as directed. Follow up with Dr. Brandt and return for any new or worsening symptoms Prescriptions: Doxycycline Hyclate 100 mg PO BID 7 Days #14 tab methylPREDNISolone Dose Pack [Medrol Dose Pack] 4 mg PO DIRECTED #21 tab Is patient prescribed a controlled substance at d/c from ED?: No Referrals: Michoacano Alcantar DO [Primary Care Provider] - 1-2 days Alexander Brandt DO [Doctor of Osteopathic Medicine] - 1-2 days Time of Disposition: 05:40
[2023-02-18 05:43] VITALS: BP 134/89; PULSE 81; RESP 16
--- NOTE | 2023-02-18 07:32 | XR ---
EXAMINATION TYPE: XR chest 2V DATE OF EXAM: 02/18/2023 COMPARISON: 07/28/2016 INDICATION: Difficulty breathing TECHNIQUE: Frontal and lateral views of the chest are obtained. FINDINGS: The heart size is normal. The pulmonary vasculature is normal. The lungs are clear. IMPRESSION: 1. No acute pulmonary process.
== END 2023-02-18 05:48 | disposition home or self-care (01) ==
LOC: EC 02:24
DX: J44.1 Chronic obstructive pulmonary disease with (acute) exacerbation (principal); J44.0 Chronic obstructive pulmonary disease with (acute) lower respiratory infection; J18.9 Pneumonia, unspecified organism; E87.1 Hypo-osmolality and hyponatremia; I10 Essential (primary) hypertension; F17.200 Nicotine dependence, unspecified, uncomplicated; F12.90 Cannabis use, unspecified, uncomplicated; Z79.899 Other long term (current) drug therapy; Z88.8 Allergy status to other drugs, medicaments and biological substances
CPT/HCPCS: 36415; 94640; 93005; 80053; 83605; 84484; 85025; 85610; 85730; 71046; 99285; 96374; J2930

== ENCOUNTER → 2023-03-01 | Outpatient (CLI) | payer OTHER ==
--- NOTE | 2023-03-02 08:56 | MM ---
Reason for Exam: Screening (asymptomatic). Last mammogram was performed 2 year(s) and 10 month(s) ago. Patient History: Menarche at age 14. First Full-Term at age 20. Postmenopausal. 2008, Benign Excisional Biopsy on the right side. Risk Values: Kimberley 5 year model risk: 1.3%. NCI Lifetime model risk: 6.1%. Prior Study Comparison: 08/23/2017 Bilateral Screening Mammogram, [facility]. 03/24/2019 Bilateral Screening Mammogram, [facility]. 05/05/2020 Bilateral Screening Mammogram, [facility]. Tissue Density: There are scattered fibroglandular densities. Findings: Analyzed By CAD. There is no suspicious group of microcalcifications or new suspicious mass in either breast. Benign-appearing calcifications. Overall Assessment: Benign, BI-RAD 2 Management: Screening Mammogram of both breasts in 1 year. . Patient should continue monthly self-breast exams. A clinical breast exam by your physician is recommended on an annual basis. This exam should not preclude additional follow-up of suspicious palpable abnormalities. Note on Kimberley scores and lifetime risk: 1. A Kimberley score greater than 3% is considered moderate risk. If this is the case, consider specialist referral to assess eligibility for a risk reducing agent. 2. If overall lifetime risk for the development of breast cancer is 20% or higher, the patient may qualify for future screening with alternating mammogram and breast MRI. Electronically signed and approved by: Earl Sutton M.D. Radiologis
--- NOTE | 2023-03-02 11:12 | BD ---
EXAMINATION TYPE: Axial Bone Density DATE OF EXAM: 03/01/2023 CLINICAL HISTORY: 62 years old Female. ICD-10 CODE: M81.0 Height: 64 in Weight: 148 lbs FRAX RISK QUESTIONS: Family History (Parent hip fracture): yes mother History of Fracture in Adulthood: compression fx of thoracic spine 2013 Secondary Osteoporosis: Current Tobacco Use: yes RISK FACTORS HISTORY OF: Spine Fracture: compression fx to thoracic spine History of Wrist Fracture: yes rt wrist age 6 and 12 Family History of Osteoporosis: yes mother Active: yes Postmenopausal woman: age 52 Lost more than 2 inches in height since high school: yes 06/12" MEDICATIONS: Thyroid Medications: yes Which medication: Levothyroxine How Lon years Osteoporosis Medications: yes Which medication: alendronate sodium How Lon years Additional Medications: vit d2, blood pressure meds, cholesterol meds, rescue inhaler, anti depressan t EXAM MEASUREMENTS: Bone mineral densitometry was performed using the [employer] System. Bone mineral density as measured about the Lumbar spine is: ----- L1-L4(G/cm2): 1.017 T Score Values are as follows: ----- L1: -2.4 ----- L2: -2.3 ----- L3: -0.1 ----- L4: -1.1 ----- L1-L4: -1.4 Z Score Values are as follows: ----- L1: -1.1 ----- L2: -1.0 ----- L3: 1.1 ----- L4: 0.2 ----- L1-L4: -0.1 Bone mineral density has: Increased 10.4% since study of: 05/05/2020 Bone mineral density about the R hip (g/cm2): 0.610 Bone mineral density about the L hip (g/cm2): 0.644 T Score values are as follows: -----R Neck: -2.9 -----L Neck: -2.6 -----R Total: -3.2 -----L Total: -2.9 Z Score values are as follows: -----R Neck: -1.6 -----L Neck: -1.3 -----R Total: -2.2 -----L Total: -1.9 Bone mineral density has: Increased 4.0% since study of: 05/05/2020 FRAX%s: The graph provided illustrates a 41.6% chance for a major osteoporotic fx and a 11.3% chance for the hips probability for fx in 10 years time. IMPRESSION: Osteoporosis (T Score less than -2.5). There is increased fracture risk and therapy is usually indicated based on age. Re-Screen 1-2 years. NOTE: T-SCORE=SD OF THE YOUNG ADULT MEAN.
== END | disposition home or self-care (01) ==
LOC: RADMAMWWP 15:09
PROVIDERS: ATTEND Family Medicine
DX: Z12.31 Encounter for screening mammogram for malignant neoplasm of breast (principal); M81.0 Age-related osteoporosis without current pathological fracture; M85.89 Other specified disorders of bone density and structure, multiple sites; Z78.0 Asymptomatic menopausal state
CPT/HCPCS: 77067; 77080

== ENCOUNTER 2023-08-24 06:31 | Day surgery (SDC) | payer OTHER ==
[2023-08-24] MEDS: LACTATED RINGERS 1,000 ML IV SCH (07:17)
[2023-08-24 07:23] VITALS: TEMP 97.2
[2023-08-24] MEDS ORDERED: PROPOFOL 10 MG/ML 20 ML VIAL IV ONE (07:38)
[2023-08-24] MEDS ORDERED: LIDOCAINE 1% INJ 10MG/ML (20 ML MDV) ONE (07:38)
--- NOTE | 2023-08-24 08:00 | P.PCN ---
Date of Procedure: 08/24/23 Procedure(s) Performed: Brief history: Patient is a pleasant 63-year-old white female scheduled for an elective upper endoscopy as well as colonoscopy as a part of evaluation of intermittent nausea vomiting for the last several years duration but has been was in the last 1 year. Prior history of peptic ulcer disease diagnosed in 2019. She is scheduled for a colonoscopy as a part of screening for colorectal neoplasia Procedure performed: Esophagogastroduodenoscopy with biopsy Colonoscopy Preoperative diagnosis: Intermittent nausea vomiting of several years duration Screening for colon cancer Anesthesia: MAC Procedure: After informed consent was obtained from the patient was brought into the en doscopy unit and IV sedation was administered by anesthesia under continuous monitoring. Initially upper endoscopy was done. The Olympus GF 160 video endoscope was inserted inserted into the mouth and esophagus intubated without any difficulty and was gradually advanced into the stomach and duodenum and carefully examined. The bulb and second part of the duodenum appeared normal. The scope was then withdrawn into the stomach adequately insufflated with air and upon careful examination the antrum had scattered erosions and biopsies were done from this area. Mucosa of the body, cardia and fundus appeared normal. The scope was then withdrawn into the esophagus. Small hiatal hernia noted. The GE junction was located at 40 cm to the incisors. There were linear erosions and once position ulceration the GE junction consistent with LA grade C reflux esophagitis.. Rest of the esophagus appeared normal. Patient tolerated the procedure well. At this time the patient continued to remain sedation. Initial digital rectal examination was normal. Olympus CF 160 video colonoscope was then inserted into the rectum and gradually advanced to the cecum without any difficulty. Careful examination was performed as the scope was gradually being withdrawn. The prep was excellent. The cecum, ascending colon, transverse colon, descending colon, sigmoid colon and rectum appeared normal. Retroflexion was performed in the rectum and no lesions were noted. Patient tolerated the procedure well. Impression: 1. Upper endoscopy revealed mild antral erosive gastritis, small hiatal hernia and LA grade C reflux esophagitis 2. Colonoscopy was within normal limits with no evidence of colorectal neoplasia Recommendations: Findings of this examination were discussed with the patient as well as her family. She was advised to follow with the biopsy results. Recommend increase the pantoprazole 40 mg twice daily and follow antireflux measures. Avoid NSAIDs. Recommend repeat screening colonoscopy in 10 years.
[2023-08-24 08:34] VITALS: BP 119/81
[2023-08-24 08:35] VITALS: PULSE 69; RESP 15
== END 2023-08-24 08:46 | disposition home or self-care (01) ==
LOC: ORWHC2ENDO 06:31
PROVIDERS: ATTEND Internal Medicine Gastroenterology
DX: Z12.11 Encounter for screening for malignant neoplasm of colon (principal); K21.00 Gastro-esophageal reflux disease with esophagitis, without bleeding; K29.50 Unspecified chronic gastritis without bleeding; K44.9 Diaphragmatic hernia without obstruction or gangrene; I10 Essential (primary) hypertension; J45.909 Unspecified asthma, uncomplicated; E03.9 Hypothyroidism, unspecified; G40.909 Epilepsy, unspecified, not intractable, without status epilepticus; Z87.11 Personal history of peptic ulcer disease; Z79.890 Hormone replacement therapy; Z79.899 Other long term (current) drug therapy; Z88.8 Allergy status to other drugs, medicaments and biological substances
CPT/HCPCS: 88305; 43239; J2001; J2704; G0105; 45378

== ENCOUNTER → 2023-11-07 | Outpatient (CLI) | payer OTHER ==
--- NOTE | 2023-11-08 07:43 | XR ---
EXAMINATION TYPE: XR foot complete RT DATE OF EXAM: 11/07/2023 COMPARISON: NONE HISTORY: Pain TECHNIQUE: Three views are submitted. FINDINGS: The osseous structures are intact. There is no acute fracture or dislocation. There is a sclerotic density involving the distal phalanx first digit. Most likely in the bases benign bone island. Mild generalized demineralization. Deformity of the proximal phalanx of the second digit compatible with r emote trauma. IMPRESSION: 1. No acute fracture. If symptoms persist follow-up exam in 7-10 days or
== END | disposition home or self-care (01) ==
LOC: RADXRYALE 15:22
PROVIDERS: ATTEND Physician Assistant
DX: M79.671 Pain in right foot (principal)

== ENCOUNTER → 2023-11-16 | Outpatient (CLI) | payer OTHER ==
--- NOTE | 2023-11-16 12:53 | XR ---
EXAMINATION TYPE: XR lumbosacral spine min 4V DATE OF EXAM: 11/16/2023 12:08 PM CLINICAL INDICATION:Female, 63 years old with history of [id number] LBP; COMPARISON: None TECHNIQUE: XR lumbosacral spine min 4V - Frontal, lateral , bilateral oblique and coned in L5-S1 late ral views of the spine. FINDINGS: No evidence of any acute osseous pathology. No evidence of loss of vertebral body height i s seen. There is normal alignment of the lumbar vertebral bodies. Mild scattered disc space narrowing . Multilevel marginal osteophyte formation throughout the visualized spine. There is facet joint arth ropathy throughout the spine. Scattered at least mild neural foraminal stenosis. Sclerosis of the art erial vasculature. IMPRESSION: 1. No acute fracture. 2. Mild to moderate multilevel disc degeneration.
== END | disposition home or self-care (01) ==
LOC: RADXRYALE 11:46
PROVIDERS: ATTEND Physician Assistant
DX: M51.36 Other intervertebral disc degeneration, lumbar region (principal)
CPT/HCPCS: 72110

== ENCOUNTER 2023-11-20 15:43 | Emergency (ER) | payer OTHER ==
[2023-11-20 16:09] VITALS: RESP 18; TEMP 97.8
--- NOTE | 2023-11-20 16:44 | ED ---
Fall HPI - General Source: patient, RN notes reviewed Mode of arrival: wheelchair <Kiana Romeo - Last Filed: 11/20/23 16:42> - General Source: RN notes reviewed <Kassandra Gallardo - Last Filed: 11/20/23 23:20> - General Chief Complaint: Fall Stated Complaint: Pain management, post fall Time Seen by Provider: 11/20/23 15:59 - History of Present Illness Initial Comments: Quick note-this is a 63-year-old female presents emergency department chief complaint of left hip and back pain. Following few weeks ago. States the pain radiates into her leg, denies paresthesias. She denies saddle anesthesias, loss of bladder or bowel continence. Denies previous surgeries on her back. (Kiana Romeo) 63-year-old female presenting with left hip and back pain 2 weeks following fall onto left hip. The pain radiates into her left leg. She denies any weakness or loss bowel or bladder control. She has been seen by her PCP for this several times and they have been giving her tramadol and baclofen which mildly helped symptoms but she states she has ran out of medications and her PCP is out of office. Patient is able to weight-bear. (Kassandra Gallardo) - Related Data Home Medications Medication Instructions Recorded Confirmed Albuterol Inhaler [Ventolin Hfa 2 puff INHALATION RT-Q4H PRN 07/28/16 08/22/23 Inhaler] Ergocalciferol (Vitamin D2) 50,000 unit PO Q14D 09/21/19 08/22/23 [Drisdol (50,000 Iu)] Metoprolol Tartrate [Lopressor] 100 mg PO QAM 01/22/20 08/22/23 Albuterol Nebulized [Ventolin 2.5 mg INHALATION Q6H PRN 08/22/23 08/22/23 Nebulized] Alendronate Sodium [Fosamax] 70 mg PO WEEKLY 08/22/23 08/22/23 Budesonide-Formot 160-4.5 Mcg 2 puff INHALATION BID 08/22/23 08/22/23 [Symbicort 160-4.5 Mcg Inhaler] Curcumin-Phosphatidylcholine 1 cap PO QAM 08/22/23 08/22/23 [Curcumin Phytosome] LORazepam [Ativan] 0.5 mg PO BID PRN 08/22/23 08/22/23 Levothyroxine Sodium [Synthroid] 50 mcg PO QAM 08/22/23 08/22/23 Magnesium 400 mg PO DAILY 08/22/23 08/22/23 Montelukast [Singulair] 10 mg PO QAM 08/22/23 08/22/23 Pantoprazole Sodium [Protonix] 40 mg PO DAILY PRN 08/22/23 08/22/23 Pravastatin Sodium [Pravachol] 40 mg PO HS 08/22/23 08/22/23 Sertraline [Zoloft] 100 mg PO QAM 08/22/23 08/22/23 Ubidecarenone [Co Q-10] 1 tab PO DAILY 08/22/23 08/22/23 Previous Rx's Medication Instructions Recorded Lidocaine 5% Patch [Lidoderm 5% 1 patch TOPICAL DAILY PRN 7 Days 11/20/23 Patch] #7 patch Allergies Allergy/AdvReac Type Severity Reaction Status Date / Time steroids AdvReac Unknown Uncoded 08/24/23 07:04 Review of Systems ROS Other: All systems not noted in ROS Statement are negative. <Kiana Romeo - Last Filed: 11/20/23 16:42> ROS Other: All systems not noted in ROS Statement are negative. <Kassandra Gallardo - Last Filed: 11/20/23 23:20> ROS Statement: Those systems with pertinent positive or pertinent negative responses have been documented in the HPI. Past Medical History Past Medical History: Asthma, Blood Disorder, Chest Pain / Angina, COPD, GERD/Reflux, GI Bleed, Hypertension, Osteoarthritis (OA), Seizure Disorder, Skin Disorder, Thyroid Disorder Additional Past Medical History / Comment(s): TAKOTSUBO SYNDROME (broken heart syndrome) 2013, Has had only one seizure in 2012 and takes no medications for seizures, von willebrand syndrome, states had issue with low sodium from DDAVP given for von willebrand during hospital stay,bleeding ulcers, hypothyroidism, states no problems w/ recent lab work History of Any Multi-Drug Resistant Organisms: None Reported Past Surgical History: Heart Catheterization, Tonsillectomy Additional Past Surgical History / Comment(s): Rt. breast lumpectomy, bilateral cataracts with lens implants, teratoma removal from neck when an , EGD/colonoscopy Past Anesthesia/Blood Transfusion Reactions: Previous Problems w/ Anesthesia, Motion Sickness, Postoperative Nausea & Vomiting (PONV) Additional Past Anesthesia/Blood Transfusion Reaction / Comment(s): Trouble waking up from anesthesia as a child Past Psychological History: Anxiety, Depression Smoking Status: Current every day smoker Past Alcohol Use History: None Reported Past Drug Use History: None Reported - Past Family History Mother Family Medical History: Hypertension <Kiana Romeo - Last Filed: 11/20/23 16:42> General Exam Limitations: no limitations <Kiana Romeo - Last Filed: 11/20/23 16:42> General appearance: alert, in no apparent distress Head exam: Present: atraumatic, normocephalic, normal inspection Eye exam: Present: normal appearance, PERRL, EOMI. Absent: scleral icterus, conjunctival injection, periorbital swelling ENT exam: Present: normal exam, mucous membranes moist Neck exam: Present: normal inspection. Absent: tenderness, meningismus, lymphadenopathy Respiratory exam: Present: normal lung sounds bilaterally. Absent: respiratory distress, wheezes, rales, rhonchi, stridor Cardiovascular Exam: Present: regular rate, normal rhythm, normal heart sounds. Absent: systolic murmur, diastolic murmur, rubs, gallop, clicks GI/Abdominal exam: Present: soft, normal bowel sounds. Absent: distended, tenderness, guarding, rebound, rigid Extremities exam: Present: normal inspection, full ROM, normal capillary refill, other (Full range of motion and strength of bilateral hips. Full sensation and dorsalis pedis pulses bilaterally. No saddle anesthesia). Absent: tenderness, pedal edema, joint swelling, calf tenderness Back exam: Present: normal inspection. Absent: CVA tenderness (R), CVA tenderness (L) Neurological exam: Present: alert, oriented X3, CN II-XII intact Psychiatric exam: Present: normal affect, normal mood Skin exam: Present: warm, dry, intact, normal color. Absent: rash <Kassandra Gallardo - Last Filed: 11/20/23 23:20> - General Exam Comments Initial Comments: Visual Physical Exam Vital signs reviewed General: Well-appearing, nontoxic, no acute distress. Head: Normocephalic, atraumatic Eyes: PERRLA, EOMI ENT: Airway patent Chest: Nonlabored breathing Skin: No visual rash, normal skin tone Neuro: Alert and oriented 3 Musculoskeletal: No gross abnormalities (Kiana Romeo) Course Vital Signs 11/20/23 11/20/23 16:06 19:02 Temperature 97.8 F 97.8 F Pulse Rate 70 67 Respiratory 18 18 Rate Blood Pressure 156/86 170/92 O2 Sat by Pulse 98 97 Oximetry Medical Decision Making <Kiana Romeo - Last Filed: 11/20/23 16:42> <Kassandra Gallardo - Last Filed: 11/20/23 23:20> - Medical Decision Making I completed the quick note portion of this chart signed Kiana Romeo PA-C (Kiana Romeo) Was pt. sent in by a medical professional or institution ([facility], [facility], urgent care, hospital, or jail...) When possible be specific @ -No Did you speak to anyone other than the patient for history (EMS, parent, family, police, friend...)? What history was obtained from this source @ -No Did you review nursing and triage notes (agree or disagree)? Why? @ -I reviewed and agree with nursing and triage notes Were old charts reviewed (outside hosp., previous admission, EMS record, old EKG , old radiological studies, urgent care reports/EKG's, jail records)? Report findings @ -No old charts were reviewed Differential Diagnosis (chest pain, altered mental status, abdominal pain women, abdominal pain men, vaginal bleeding, weakness, fever, dyspnea, syncope, headache, dizziness, GI bleed, back pain, seizure, CVA, palpatations, mental health, musculoskeletal)? @ -Differential Musculoskeletal Muscular strain, contusion, ligament sprain, fracture, arthritis, septic arthritis, bursitis, cellulitis, muscle spasm, nerve compression, DVT, arterial occlusion, herpes zoster, electrolyte abnormality, tumor.... This is not meant to be in all inclusive list EKG interpreted by me (3pts min.). @ -None X-rays interpreted by me (1pt min.). @ -X-ray of left hip and AP pelvis reveals no acute fracture or dislocation of hip or pelvis CT interpreted by me (1pt min.). @ -None done U/S interpreted by me (1pt. min.). @ -None done What testing was considered but not performed or refused? (CT, X-rays, U/S, labs)? Why? @ -Patient offered CT scan to rule out fracture as patient has had several negative x-rays and is still having pain, patient declines CT scan at this time and states she will follow-up with her PCP. What meds were considered but not given or refused? Why? @ -None Did you discuss the management of the patient with other professionals (professionals i.e. DrRenzo, PA, [employer], lab, RT, psych nurse, social science teacher, silk opener, teacher, risk control officer, housing case manager)? Give summary @ -No Was smoking cessation discussed for >3mins.? @ -No Was critical care preformed (if so, how long)? @ -No Were there social determinants of health that impacted care today? How? (Homelessness, low income, unemployed, alcoholism, drug addiction, transportation, low edu. Level, literacy, decrease access to med. care, long term, rehab)? @ -No Was there de-escalation of care discussed even if they declined (Discuss DNR or withdrawal of care, Hospice)? DNR status @ -No What co-morbidities impacted this encounter? (DM, HTN, Smoking, COPD, CAD, Cancer, CVA, ARF, Chemo, Hep., AIDS, mental health diagnosis, sleep apnea, morbid obesity)? @ -None Was patient admitted / discharged? Hospital course, mention meds given and route, prescriptions, significant lab abnormalities, going to OR and other pertinent info. @ -Patient was discharged. Patient was seen and evaluated for left hip pain x 2 weeks status post fall. Patient is neurovascularly intact. No red flag symptoms. X-ray reveals no acute fracture or dislocation of the hip or pelvis. Patient declined further testing at this time. Toradol injection given for pain. Patient was given Tylenol three starter pack for pain. Prescribed lidocaine patches to pharmacy. Diagnosis of hip strain discussed with patient in detail. Strict return/alarm symptoms discussed with patient in detail and she shows understanding and agrees with plan. Advised to follow-up with PCP in 1 to 3 days. Case discussed with my attending Dr. Sierra. Patient discharged in stable condition. Undiagnosed new problem with uncertain prognosis? @ -No Drug Therapy requiring intensive monitoring for toxicity (Heparin, Nitro, Insulin, Cardizem)? @ -No Were any procedures done? @ -No Diagnosis/symptom? @ -Left hip strain Acute, or Chronic, or Acute on Chronic? @ -Acute Uncomplicated (without systemic symptoms) or Complicated (systemic symptoms)? @ -Uncomplicated Side effects of treatment? @ -No Exacerbation, Progression, or Severe Exacerbation? @ -No Poses a threat to life or bodily function? How? (Chest pain, [place], [place], pneumonia, PE, COPD, DKA, ARF, appy, cholecystitis, CVA, Diverticulitis, Homicidal, Suicidal, threat to staff... and all critical care pts) @ -low likelihood (Kassandra Gallardo) Disposition <Kiana Romeo - Last Filed: 11/20/23 16:42> Is patient prescribed a controlled substance at d/c from ED?: No Time of Disposition: 18:53 <Kassandra Gallardo - Last Filed: 11/20/23 23:20> Clinical Impression: Strain of left hip Disposition: HOME SELF-CARE Condition: Stable Instructions (If sedation given, give patient instructions): Hip Sprain (ED) Additional Instructions: Please follow-up with PCP in 1 to 3 days. Please return to the Emergency Department if symptoms worsen or any other concerns. Prescriptions: Lidocaine 5% Patch [Lidoderm 5% Patch] 1 patch TOPICAL DAILY PRN 7 Days #7 patch PRN Reason: Pain Referrals: Cori Singh PAC [REFERRING] - 1-2 days
--- NOTE | 2023-11-20 17:00 | XR ---
EXAMINATION TYPE: XR Hip LT and AP Pelvis DATE OF EXAM: 11/20/2023 COMPARISON: NONE HISTORY: Fall with pain TECHNIQUE: A single AP view of the pelvis is obtained. Two views of the left hip are obtained. FINDINGS: There is no acute fracture/dislocation evident in the pelvis. The hip and sacroiliac join ts appear symmetric and unremarkable. Pubic symphysis is intact. Scattered tiny bilateral pelvic phl eboliths. Two views of left hip show no acute fracture or dislocation. No focal lytic or sclerotic lesion seen in the proximal left femur. The overlying soft tissue is unremarkable. IMPRESSION: There is no acute fracture or dislocation in the pelvis or left hip.
[2023-11-20] MEDS: KETOROLAC 15 MG/ML 1 ML VIAL IM STA (18:56)
[2023-11-20] MEDS: ACET/COD 300 MG/30 MG STARTER PACK 6 TAB BTL PO STA (18:57)
[2023-11-20 19:04] VITALS: BP 170/92; PULSE 67
== END 2023-11-20 19:04 | disposition home or self-care (01) ==
LOC: EC 15:43
DX: S76.012A Strain of muscle, fascia and tendon of left hip, initial encounter (principal); F17.200 Nicotine dependence, unspecified, uncomplicated; Z88.8 Allergy status to other drugs, medicaments and biological substances; W18.30XA Fall on same level, unspecified, initial encounter
CPT/HCPCS: 96372 ×2; 99283; 99284; 73502; J1885

== ENCOUNTER → 2024-12-25 | Outpatient (CLI) | payer OTHER ==
--- NOTE | 2024-12-25 13:47 | MM ---
Reason for Exam: Screening (asymptomatic). Last mammogram was performed 1 year(s) and 10 month(s) ago. Patient History: Menarche at age 14. First Full-Term at age 20. Postmenopausal. 2008, Benign Excisional Biopsy on the right side. Risk Values: Kimberley 5 year model risk: 1.3%. NCI Lifetime model risk: 5.7%. Prior Study Comparison: 03/24/2019 Bilateral Screening Mammogram, [facility]. 05/05/2020 Bilateral Screening Mammogram, [facility]. 03/01/2023 Bilateral MG screening mammo w CAD, [facility]. Tissue Density: There are scattered areas of fibroglandular density. Findings: Analyzed By CAD. A faint loosely grouped calcifications upper outer quadrant right breast. Stable asymmetric tissue upper outer left breast. Benign calcifications. Punctate chronic nodularity right breast. Overall Assessment: Incomplete: need additional imaging evaluation, BI-RAD 0 Management: Special View Mammogram of the right breast. . Patient should continue monthly self-breast exams. A clinical breast exam by your physician is recommended on an annual basis. This exam should not preclude additional follow-up of suspicious palpable abnormalities. Note on Kimberley scores and lifetime risk: 1. A Kimberley score greater than 3% is considered moderate risk. If this is the case, consider specialist referral to assess eligibility for a risk reducing agent. 2. If overall lifetime risk for the development of breast cancer is 20% or higher, the patient may qualify for future screening with alternating mammogram and breast MRI. [facility], , 12/25/2024 1:44 PM. Electronically signed and approved by: Earl Sutton M.D. Radiologis
== END | disposition home or self-care (01) ==
LOC: RADMAMWWP 12:54
PROVIDERS: ATTEND Family Medicine
DX: Z12.31 Encounter for screening mammogram for malignant neoplasm of breast (principal); R92.323 Mammographic fibroglandular density, bilateral breasts; R92.1 Mammographic calcification found on diagnostic imaging of breast; Z78.0 Asymptomatic menopausal state
CPT/HCPCS: 77067

== ENCOUNTER → 2024-12-30 | Outpatient (CLI) | payer OTHER ==
--- NOTE | 2024-12-30 08:53 | MM ---
Reason for Exam: Additional evaluation requested from abnormal screening. Last screening mammogram was performed less than 1 month ago. Patient History: Menarche at age 14. First Full-Term at age 20. Postmenopausal. Patient has history of breast feeding. 2008, Benign Excisional Biopsy on the right side. Paternal aunt (gr) had ovarian cancer at or over age 50. Sister had ovarian cancer under age 50. Risk Values: Kimberley 5 year model risk: 1.3%. NCI Lifetime model risk: 5.7%. Prior Study Comparison: 10/20/2015 Bilateral Diagnostic Mammogram, [facility]. 08/23/2017 Bilateral Screening Mammogram, [facility]. 03/24/2019 Bilateral Screening Mammogram, [facility]. 05/05/2020 Bilateral Screening Mammogram, [facility]. 03/01/2023 Bilateral MG screening mammo w CAD, [facility]. 12/25/2024 Bilateral MG screening mammo w CAD, [facility]. Tissue Density: Right: There are scattered areas of fibroglandular density. Findings: Analyzed By CAD. Area of concern/asymmetry compresses out on spot compression imaging. No suspicious masses, calcifications or distortions. Overall Assessment: Benign, BI-RAD 2 Management: Screening Mammogram of both breasts in 1 year. Results were given to the patient verbally at the time of exam. Patient should continue monthly self-breast exams. A clinical breast exam by your physician is recommended on an annual basis. This exam should not preclude additional follow-up of suspicious palpable abnormalities. Note on Kimberley scores and lifetime risk: 1. A Kimberley score greater than 3% is considered moderate risk. If this is the case, consider specialist referral to assess eligibility for a risk reducing agent. 2. If overall lifetime risk for the development of breast cancer is 20% or higher, the patient may qualify for future screening with alternating mammogram and breast MRI. [facility], , 12/30/2024 8:51 AM. Electronically signed and approved by: Alexander Dunham DO
== END | disposition home or self-care (01) ==
LOC: RADMAMWWP 08:14
PROVIDERS: ATTEND Family Medicine
DX: R92.8 Other abnormal and inconclusive findings on diagnostic imaging of breast (principal); R92.321 Mammographic fibroglandular density, right breast; Z78.0 Asymptomatic menopausal state
CPT/HCPCS: 77065; G0279; 77061